=== PATIENT | female | born 1990 | race Caucasian/White ===

== ENCOUNTER 2016-09-07 22:36 | Emergency (ER) | payer OTHER ==
[~2016-09-07 22:36] MED LIST: ACET65TA OR; COLA100C2 OR; IBUP800T OR; prenatal vitamins PO
[2016-09-08] MEDS ORDERED: PERCOCET 5MG/325MG TAB As Ordered ONE (01:15)
--- NOTE | 2016-09-08 01:28 | EDDOCDS ---
Nurse's Notes [facility] Name: Gosia Bishop Age: 26 yrs Sex: Female : 1990 Arrival Date: 09/07/2016 Time: 22:36 Bed TR7 Private MD: Patrick Leahy Diagnosis: Abdominal and pelvic pain-chronic Presentation: 09/07 22:53 Presenting complaint: Patient states: that she has "pelvic congestion syndrome" and is ms18 in a lot of pain at this time. Pt reports nausea at this time. Risk factors: the patient reports pt states that she had some spotting 2 nights ago. Adult Sepsis Screening: The patient does not have new or worsening altered mentation. Patient's respiratory rate is less than 22. Systolic blood pressure is greater than 100. Patient has a qSOFA score of 0- Negative Sepsis Screen. Suicide/Homicide risk assessment- the patient denies having any suicidal and/or homicidal ideations and does not present with any other emotional, behavioral or mental health complaints. Status: Patient is not a lead customer service representative or dependent. Transition of care: patient was not received from another setting of care. 22:53 Acuity: ROSETTE Level 3 ms18 22:53 Method Of Arrival: Walkin/Carried/Asstd ms18 Triage Assessment: 22:56 General: Appears in no apparent distress, uncomfortable, Behavior is anxious, crying. ms18 Pain: Location: pelvis. HIV screening NA for this visit Offered previously. Neurological: Level of Consciousness is awake, alert, obeys commands, Oriented to person, place, time. Respiratory: Airway is patent Respiratory effort is even, unlabored. GI: Abdomen is non- distended Reports nausea. Derm: Skin is pink, warm & dry. 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 Depo-Provera 150 mg/mL IM syrg every 3 mo - PMHx: Migraines; pelvic congestive syndrome; - PSHx: none; - Social history: Smoking status: Patient states was never smoker of tobacco. No barriers to communication noted, The patient speaks fluent Gambian. - Family history: Not pertinent. - : The pt / caregiver states he / she is not on anticoagulants. Home medication list is obtained from the patient. - Exposure Risk Screening:: None identified. Screenin/03 00:40 Screening information is obtained from the patient. Fall risk: No risks identified. lf1 Assistance ADL's: requires no assistance with activities of daily living. Nutritional screening: No deficits noted. 01:27 Abuse/DV Screen: The patient / caregiver reports he/she is: not in a situation that cz causes fear, pain or injury. home support is adequate. Assessment: 00:40 Adult Sepsis Screening: The patient does not have new or worsening altered mentation. lf1 Patient's respiratory rate is less than 22. Systolic blood pressure is greater than 100. Patient has a qSOFA score of 0- Negative Sepsis Screen. General: Appears in no apparent distress, Behavior is restless. Pain: Location: pelvis Pain currently is 10 out of 10 on a pain scale. Quality of pain is described as "like contractions only worse" Pain began 2-3 days ago Has taken no OTC meds because nothing works. Neurological: Level of Consciousness is awake, alert, Oriented to person, place, time. EENT: No deficits noted. Cardiovascular: Chest pain is denied. Respiratory: Respiratory effort is even, unlabored, Breath sounds are clear bilaterally. GI: Abdomen is flat, Bowel sounds present X 4 quads. Abd is soft and non tender Reports Pelvic/suprapubic pain that is recurrent - states she has not sought follow up care with a PCP because "it's complicated and they just keep screwing with me". : Denies burning with urination. Derm: Skin is normal. Vital Signs: 09/07 22:37 BP 128 / 92; Pulse 113; Resp 18 S; Temp 98.9(O); Pulse Ox 99% on R/A; Weight 49.9 kg gr2 (R); Height 5 ft. 5 in. (165.10 cm) (R); Pain 10/10; 09/08 01:17 BP 136 / 82 RA Sitting (auto/reg); Pulse 93 MON; Resp 20 S; Temp 98.6(O); Pulse Ox 98% cln on R/A; Pain 0/10; 09/07 22:37 Body Mass Index 18.30 (49.90 kg, 165.10 cm) gr2 Vitals: 09/07 22:37 Log In Time: September 07, 2016 at 22:37. gr2 ED Course: 22:37 Patient visited by Skip Gallagher. gr2 22:37 Patrick Leahy is Private Physician. gr2 22:37 Patient moved to Waiting gr2 22:39 Patient visited by Skip Gallagher. gr2 22:39 Patient moved to Pre RCE gr2 22:55 Triage Initiated ms18 23:39 Patient moved to Triage 1 cz 09/08 00:19 Patient moved to I4 / M4 jmb 00:39 Noe Castro PA is PHCP. mo1 00:39 Osiel Reyes MD is Attending Physician. mo1 00:40 Patient visited by Aylin Shaikh,ОЛЬГА. lf1 00:40 The patient / caregiver is instructed regarding the plan of care and ED course. lf1 Accompanied by Significant Other, Patient has correct armband on for positive identification. Bed in low position. 00:43 Patient visited by Aylin Shaikh,ОЛЬГА. lf1 00:56 Patient visited by Noe Castro PA. mo1 01:13 Patrick Leahy is Referral Physician. mo1 01:18 Patient visited by Kori Perkins PCA. cln 01:20 Patient moved to TR7 cz 01:27 No IV's were initiated during this patient's visit. No procedures done that require cz assistance. Administered Medications: 01:24 Drug: oxyCODONE-acetaminophen 1 tabs [oxycodone-acetaminophen 5 mg-325 mg tablet (1 cz tabs)] Route: PO; Order Results: There are currently no results for this order. Outcome: 01:13 Discharge ordered by Provider. mo1 01:26 Discharge Assessment: Patient awake, alert and oriented x 3. No cognitive and/or cz functional deficits noted. Patient verbalized understanding of disposition instructions. patient administered narcotics - yes. Pt provided with safe discharge. The following High Risk Discharge criteria are identified: None. Discharged to home ambulatory, with significant other. Condition: stable. Discharge instructions given to patient, Instructed on discharge instructions, follow up and referral plans. Demonstrated understanding of instructions, Pt was receptive of discharge instructions/ teaching. No special radiology studies were completed. Property :Personal belongings accompany Pt. 01:27 Patient left the ED. cz Signatures: Rosendo Marino RN RN cz Aylin Shaikh,RN RN lf1 Skip Gallagher gr2 Noe Castro PA PA mo1 Denzel Moran,RN RN deionb Evelyne FelizRN RN ms18 Kori Perkins, MARYANNE TOWER OPERATOR cln TIMD
--- NOTE | 2016-09-08 01:28 | EDDOCDS ---
Physician Documentation [facility] Name: Gosia Bishop Age: 26 yrs Sex: Female : 1990 Arrival Date: 09/07/2016 Time: 22:36 Bed TR7 Private MD: Patrick Leahy Disposition: 09/08/16 01:13 Discharged to Home/Self Care. Impression: Abdominal and pelvic pain - chronic. - Condition is Stable. - Discharge Instructions: Pelvic Pain, Female. - Medication Reconciliation, Local Pharmacy Hours form. - Follow up: Patrick Leahy; When: Call to arrange an appointment; Reason: Recheck today's complaints, Continuance of care. - Problem is new. - Symptoms are unchanged. Historical: - Allergies: no known allergies; - Home Meds: 1. Depo-Provera 150 mg/mL IM syrg every 3 mo - PMHx: Migraines; pelvic congestive syndrome; - PSHx: none; - Social history: Smoking status: Patient states was never smoker of tobacco. No barriers to communication noted, The patient speaks fluent Vietnamese. - Family history: Not pertinent. - : The pt / caregiver states he / she is not on anticoagulants. Home medication list is obtained from the patient. - Exposure Risk Screening:: None identified. 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 5 in. (165.10 cm) (R); Pain 10/10; 09/08 01:17 BP 136 / 82 RA Sitting (auto/reg); Pulse 93 MON; Resp 20 S; Temp 98.6(O); Pulse Ox 98% cln on R/A; Pain 0/10; 09/07 22:37 Body Mass Index 18.30 (49.90 kg, 165.10 cm) gr2 MDM: 01:11 oxyCODONE-acetaminophen 5 mg-325 mg 1 tabs PO once ordered. mo1 Administered Medications: 01:24 Drug: oxyCODONE-acetaminophen 1 tabs [oxycodone-acetaminophen 5 mg-325 mg tablet (1 cz tabs)] Route: PO; Signatures: Rosendo Marino, RN RN cz Aylin ShaikhRN RN lf1 Noe Castro PA PA mo1 Evelyne FelizRN RN ms18 MTDD
--- NOTE | 2016-09-10 02:29 | EDDOCDS ---
Nurse's Notes [facility] Name: Gosia Bishop Age: 26 yrs Sex: Female : 1990 Arrival Date: 09/07/2016 Time: 22:36 Bed TR7 Private MD: Patrick Leahy Diagnosis: Abdominal and pelvic pain-chronic Presentation: 09/07 22:53 Presenting complaint: Patient states: that she has "pelvic congestion syndrome" and is ms18 in a lot of pain at this time. Pt reports nausea at this time. Risk factors: the patient reports pt states that she had some spotting 2 nights ago. Adult Sepsis Screening: The patient does not have new or worsening altered mentation. Patient's respiratory rate is less than 22. Systolic blood pressure is greater than 100. Patient has a qSOFA score of 0- Negative Sepsis Screen. Suicide/Homicide risk assessment- the patient denies having any suicidal and/or homicidal ideations and does not present with any other emotional, behavioral or mental health complaints. Status: Patient is not a health services rn or dependent. Transition of care: patient was not received from another setting of care. 22:53 Acuity: ROSETTE Level 3 ms18 22:53 Method Of Arrival: Walkin/Carried/Asstd ms18 Triage Assessment: 22:56 General: Appears in no apparent distress, uncomfortable, Behavior is anxious, crying. ms18 Pain: Location: pelvis. HIV screening NA for this visit Offered previously. Neurological: Level of Consciousness is awake, alert, obeys commands, Oriented to person, place, time. Respiratory: Airway is patent Respiratory effort is even, unlabored. GI: Abdomen is non- distended Reports nausea. Derm: Skin is pink, warm & dry. 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 Depo-Provera 150 mg/mL IM syrg every 3 mo - PMHx: Migraines; pelvic congestive syndrome; - PSHx: none; - Social history: Smoking status: Patient states was never smoker of tobacco. No barriers to communication noted, The patient speaks fluent Cameroonian. - Family history: Not pertinent. - : The pt / caregiver states he / she is not on anticoagulants. Home medication list is obtained from the patient. - Exposure Risk Screening:: None identified. Screenin/03 00:40 Screening information is obtained from the patient. Fall risk: No risks identified. lf1 Assistance ADL's: requires no assistance with activities of daily living. Nutritional screening: No deficits noted. 01:27 Abuse/DV Screen: The patient / caregiver reports he/she is: not in a situation that cz causes fear, pain or injury. home support is adequate. Assessment: 00:40 Adult Sepsis Screening: The patient does not have new or worsening altered mentation. lf1 Patient's respiratory rate is less than 22. Systolic blood pressure is greater than 100. Patient has a qSOFA score of 0- Negative Sepsis Screen. General: Appears in no apparent distress, Behavior is restless. Pain: Location: pelvis Pain currently is 10 out of 10 on a pain scale. Quality of pain is described as "like contractions only worse" Pain began 2-3 days ago Has taken no OTC meds because nothing works. Neurological: Level of Consciousness is awake, alert, Oriented to person, place, time. EENT: No deficits noted. Cardiovascular: Chest pain is denied. Respiratory: Respiratory effort is even, unlabored, Breath sounds are clear bilaterally. GI: Abdomen is flat, Bowel sounds present X 4 quads. Abd is soft and non tender Reports Pelvic/suprapubic pain that is recurrent - states she has not sought follow up care with a PCP because "it's complicated and they just keep screwing with me". : Denies burning with urination. Derm: Skin is normal. Vital Signs: 09/07 22:37 BP 128 / 92; Pulse 113; Resp 18 S; Temp 98.9(O); Pulse Ox 99% on R/A; Weight 49.9 kg gr2 (R); Height 5 ft. 5 in. (165.10 cm) (R); Pain 10/10; 09/08 01:17 BP 136 / 82 RA Sitting (auto/reg); Pulse 93 MON; Resp 20 S; Temp 98.6(O); Pulse Ox 98% cln on R/A; Pain 0/10; 09/07 22:37 Body Mass Index 18.30 (49.90 kg, 165.10 cm) gr2 Vitals: 09/07 22:37 Log In Time: September 07, 2016 at 22:37. gr2 ED Course: 22:37 Patient visited by Skip Gallagher. gr2 22:37 Patrick Leahy is Private Physician. gr2 22:37 Patient moved to Waiting gr2 22:39 Patient visited by Skip Gallagher. gr2 22:39 Patient moved to Pre RCE gr2 22:55 Triage Initiated ms18 23:39 Patient moved to Triage 1 cz 09/08 00:19 Patient moved to I4 / M4 jmb 00:39 Noe Castro PA is PHCP. mo1 00:39 Osiel Reyes MD is Attending Physician. mo1 00:40 Patient visited by Aylin Shaikh RN. lf1 00:40 The patient / caregiver is instructed regarding the plan of care and ED course. lf1 Accompanied by Significant Other, Patient has correct armband on for positive identification. Bed in low position. 00:43 Patient visited by Aylin Shaikh RN. lf1 00:56 Patient visited by Noe Castro PA. mo1 01:13 Patrick Leahy is Referral Physician. mo1 01:18 Patient visited by Kori Perkins PCA. cln 01:20 Patient moved to TR7 cz 01:27 No IV's were initiated during this patient's visit. No procedures done that require cz assistance. 01:28 [facility] [place] Agreement was scanned into [employer] and attached to record. hs2 04:35 T-Sheet-- Draft Copy was scanned into [employer] and attached to record. hs2 Administered Medications: 01:24 Drug: oxyCODONE-acetaminophen 1 tabs [oxycodone-acetaminophen 5 mg-325 mg tablet (1 cz tabs)] Route: PO; Order Results: There are currently no results for this order. Outcome: 01:13 Discharge ordered by Provider. mo1 01:26 Discharge Assessment: Patient awake, alert and oriented x 3. No cognitive and/or cz functional deficits noted. Patient verbalized understanding of disposition instructions. patient administered narcotics - yes. Pt provided with safe discharge. The following High Risk Discharge criteria are identified: None. Discharged to home ambulatory, with significant other. Condition: stable. Discharge instructions given to patient, Instructed on discharge instructions, follow up and referral plans. Demonstrated understanding of instructions, Pt was receptive of discharge instructions/ teaching. No special radiology studies were completed. Property :Personal belongings accompany Pt. 01:27 Patient left the ED. cz Signatures: Rosendo Marino, RN RN cz Aylin ShaikhRN RN lf1 Skip Gallagher gr2 Noe Castro PA PA mo1 Denzel Moran,RN RN Evelyne Javed RN RN ms18 Nery Quiñones, Reg Reg hs2 Kori Perkins, MARYANNE SENIOR ACCOUNTING ANALYST cln Chart Complete MTDD
--- NOTE | 2016-09-10 02:29 | EDDOCDS ---
Physician Documentation [facility] Name: Gosia Bishop Age: 26 yrs Sex: Female : 1990 Arrival Date: 09/07/2016 Time: 22:36 Bed TR7 Private MD: Patrick Leahy Disposition: 09/08/16 01:13 Discharged to Home/Self Care. Impression: Abdominal and pelvic pain - chronic. - Condition is Stable. - Discharge Instructions: Pelvic Pain, Female. - Medication Reconciliation, Local Pharmacy Hours form. - Follow up: Patrick Leahy; When: Call to arrange an appointment; Reason: Recheck today's complaints, Continuance of care. - Problem is new. - Symptoms are unchanged. Historical: - Allergies: no known allergies; - Home Meds: 1. Depo-Provera 150 mg/mL IM syrg every 3 mo - PMHx: Migraines; pelvic congestive syndrome; - PSHx: none; - Social history: Smoking status: Patient states was never smoker of tobacco. No barriers to communication noted, The patient speaks fluent Croatian. - Family history: Not pertinent. - : The pt / caregiver states he / she is not on anticoagulants. Home medication list is obtained from the patient. - Exposure Risk Screening:: None identified. 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 5 in. (165.10 cm) (R); Pain 10/10; 09/08 01:17 BP 136 / 82 RA Sitting (auto/reg); Pulse 93 MON; Resp 20 S; Temp 98.6(O); Pulse Ox 98% cln on R/A; Pain 0/10; 09/07 22:37 Body Mass Index 18.30 (49.90 kg, 165.10 cm) gr2 MDM: 01:11 oxyCODONE-acetaminophen 5 mg-325 mg 1 tabs PO once ordered. mo1 01:28 Financial registration complete. hs2 01:28 [facility] Payment Agreement was scanned into [employer] and attached to record. hs2 04:35 T-Sheet-- Draft Copy was scanned into [employer] and attached to record. hs2 Administered Medications: 01:24 Drug: oxyCODONE-acetaminophen 1 tabs [oxycodone-acetaminophen 5 mg-325 mg tablet (1 cz tabs)] Route: PO; Signatures: Rosendo Marino RN RN cz Aylin Shaikh RN RN lf1 Noe Castro PA PA mo1 Evelyne Feliz RN RN ms18 Nery Quiñones, Reg Reg hs2 The chart was reviewed and I authenticate all verbal orders and agree with the evaluation and treatment provided.Attachments: 01:28 [facility] [place] Payment Agreement hs2 04:35 T-Sheet-- Draft Copy hs2 Chart Complete MTDD
--- NOTE | 2016-09-10 02:29 | EDDOCDS ---
Physician Documentation [facility] Name: Gosia Bishop Age: 26 yrs Sex: Female : 1990 Arrival Date: 09/07/2016 Time: 22:36 Bed TR7 Private MD: Patrick Leahy Disposition: 09/08/16 01:13 Discharged to Home/Self Care. Impression: Abdominal and pelvic pain - chronic. - Condition is Stable. - Discharge Instructions: Pelvic Pain, Female. - Medication Reconciliation, Local Pharmacy Hours form. - Follow up: Patrick Leahy; When: Call to arrange an appointment; Reason: Recheck today's complaints, Continuance of care. - Problem is new. - Symptoms are unchanged. Historical: - Allergies: no known allergies; - Home Meds: 1. Depo-Provera 150 mg/mL IM syrg every 3 mo - PMHx: Migraines; pelvic congestive syndrome; - PSHx: none; - Social history: Smoking status: Patient states was never smoker of tobacco. No barriers to communication noted, The patient speaks fluent Kiswahili. - Family history: Not pertinent. - : The pt / caregiver states he / she is not on anticoagulants. Home medication list is obtained from the patient. - Exposure Risk Screening:: None identified. 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 5 in. (165.10 cm) (R); Pain 10/10; 09/08 01:17 BP 136 / 82 RA Sitting (auto/reg); Pulse 93 MON; Resp 20 S; Temp 98.6(O); Pulse Ox 98% cln on R/A; Pain 0/10; 09/07 22:37 Body Mass Index 18.30 (49.90 kg, 165.10 cm) gr2 MDM: 01:11 oxyCODONE-acetaminophen 5 mg-325 mg 1 tabs PO once ordered. mo1 01:28 Financial registration complete. hs2 01:28 [facility] Payment Agreement was scanned into [employer] and attached to record. hs2 04:35 T-Sheet-- Draft Copy was scanned into [employer] and attached to record. hs2 Administered Medications: 01:24 Drug: oxyCODONE-acetaminophen 1 tabs [oxycodone-acetaminophen 5 mg-325 mg tablet (1 cz tabs)] Route: PO; Signatures: Rosendo Marino RN RN cz Aylin Shaikh RN RN lf1 Noe Castro PA PA mo1 Evelyne Feliz RN RN ms18 Nery Quiñones, Reg Reg hs2 The chart was reviewed and I authenticate all verbal orders and agree with the evaluation and treatment provided.Attachments: 01:28 [facility] Agreement hs2 04:35 T-Sheet-- Draft Copy hs2 Chart Complete MTDD
== END 2016-09-08 01:27 | disposition home or self-care (01) ==
LOC: M ED 22:36
DX: G89.29 Other chronic pain (principal); R10.2 Pelvic and perineal pain; N94.89 Other specified conditions associated with female genital organs and menstrual cycle; G43.909 Migraine, unspecified, not intractable, without status migrainosus; Z79.3 Long term (current) use of hormonal contraceptives

== ENCOUNTER 2016-09-25 22:28 | Emergency (ER) | payer OTHER ==
[2016-09-26] MEDS ORDERED: OXYCODONE/APAP 5MG/325MG(BULK) 1 TAB TAB As Ordered ONE (01:43)
--- NOTE | 2016-09-26 01:53 | EDDOCDS ---
Nurse's Notes [facility] Name: Gosia Bishop Age: 26 yrs Sex: Female : 1990 Arrival Date: 09/25/2016 Time: 22:28 Bed I1 / M1 Private MD: Patrick Leahy Diagnosis: Abdominal and pelvic pain-history of pelvic congestion Presentation: 09/25 22:31 Presenting complaint: Patient states: pelvic pain worse since last night. diagnosed rs3 with venous congestion syndrome. following up with INTERNATIONAL ACCOUNTANT. Adult Sepsis Screening: The patient does not have new or worsening altered mentation. Patient's respiratory rate is less than 22. Systolic blood pressure is greater than 100. Patient has a qSOFA score of 0- Negative Sepsis Screen. Suicide/Homicide risk assessment- the patient denies having any suicidal and/or homicidal ideations and does not present with any other emotional, behavioral or mental health complaints. 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 Transition of care: patient was not received from another setting of care. 22:31 Acuity: ROSETTE Level 4 rs3 22:31 Method Of Arrival: Walkin/Carried/Asstd rs3 Triage Assessment: 22:33 General: Appears in no apparent distress. Pain: Location: pelvis. HIV screening NA for rs3 this visit Offered previously. INTERNATIONAL ACCOUNTANT: 22:33 LMP N/A - control method rs3 Historical: - Allergies: no known allergies; - Home Meds: 1. Depo-Provera 150 mg/mL IM syrg every 3 mo - PMHx: Migraines; pelvic congestive syndrome; - PSHx: none; - Social history: Smoking status: Patient states was never smoker of tobacco. No barriers to communication noted, The patient speaks fluent Chadian. - Family history: Not pertinent. - : The pt / caregiver states he / she is not on anticoagulants. Home medication list is obtained from the patient. - Exposure Risk Screening:: None identified. Screenin/21 01:50 Screening information is obtained from the patient. Fall risk: No risks identified. jmb Assistance ADL's: requires no assistance with activities of daily living. Abuse/DV Screen: The patient / caregiver reports he/she is: not in a situation that causes fear, pain or injury. Nutritional screening: No deficits noted. Advance Directives: Currently, there is no health care proxy. There is no active DNR order. There is no living will. There is no Power of Radio Announcer. home support is adequate. Assessment: 01:50 General: Patient instructed on discharge instructions. Patient asked if there were any jmb questions regarding discharge, patient stated no. Patient signed discharge paperwork. Patient discharged in stable condition. . Vital Signs: 09/25 22:29 BP 134 / 74; Pulse 118; Resp 18 S; Temp 98.1(O); Pulse Ox 99% on R/A; Weight 49.9 kg dd6 (R); Height 5 ft. 5 in. (165.10 cm) (R); 09/26 01:50 BP 130 / 78; Pulse 74; Resp 18; Temp 97.6(O); Pulse Ox 98% on R/A; Pain 0/10; jmb 09/25 22:29 Body Mass Index 18.30 (49.90 kg, 165.10 cm) dd6 Vitals: 09/25 22:29 Log In Time: September 25, 2016 at 22:27. dd6 ED Course: 22:29 Patient visited by Aab Alvarez PCA. dd6 22:29 Patrick Leahy is Private Physician. dd6 22:29 Patient moved to Waiting dd6 22:30 Patient moved to Pre RCE dd6 22:33 Triage Initiated rs3 09/26 01:30 Patient moved to I1 / M1 dt4 01:33 [facility] dt4 01:33 Boubacar Michaels DO is Attending Physician. dt4 01:33 Patient visited by Aiyana Astudillo PA-C. dt4 01:45 Murali Wen MD is Referral Physician. dt4 01:50 The patient / caregiver is instructed regarding the plan of care and ED course. jmb 01:50 No IV's were initiated during this patient's visit. No procedures done that require jmb assistance. Administered Medications: 01:49 Drug: oxyCODONE-acetaminophen 4 pack 1 packets [oxycodone-acetaminophen 5 mg-325 mg jmb tablet (1 tabs)] {Co-Signature: cp1 (Morena Roy LPN).} Route: PO; Order Results: There are currently no results for this order. Outcome: 01:45 Discharge ordered by Provider. dt4 01:50 Discharge Assessment: Patient awake, alert and oriented x 3. No cognitive and/or jmb functional deficits noted. Patient verbalized understanding of disposition instructions. Patient awake and alert. obeys commands, Oriented to person, place and time. Patient verbalized understanding of disposition instructions. Patient has no functional deficits. patient administered narcotics - no. The following High Risk Discharge criteria are identified: None. Discharged to home ambulatory. Condition: stable. Discharge instructions given to patient, Instructed on discharge instructions, follow up and referral plans. medication usage, Demonstrated understanding of instructions, medications, Pt was receptive of discharge instructions/ teaching. Prescriptions given X 1. No special radiology studies were completed. Property sent home with patient. 01:52 Patient left the ED. sammy Signatures: Aba Alvarez, CLAM BED LABORER CLAM BED LABORER dd6 Lesli Dumont,RN RN rs3 Denzel Moran RN RN Aiyana Leblanc, PAMarcellus PAMarcellus dt4 Morena Roy LPN cp1 NORAH
--- NOTE | 2016-09-26 01:53 | EDDOCDS ---
Physician Documentation [facility] Name: Gosia Bishop Age: 26 yrs Sex: Female : 1990 Arrival Date: 09/25/2016 Time: 22:28 Bed I1 / M1 Private MD: Patrick Leahy Disposition: 09/26/16 01:45 Discharged to Home/Self Care. Impression: Abdominal and pelvic pain - history of pelvic congestion. - Condition is Stable. - Discharge Instructions: Pelvic Pain, Female. - Prescriptions for Percocet 5- 325 mg Oral Tablet - take 1 tablet by ORAL route every 6 hours As needed MDD: 4 tabs; 20 tablet. - Medication Reconciliation, Local Pharmacy Hours form. - Follow up: Emergency Department; When: As needed; Reason: Worsening of conditions. Follow up: Murali Wen MD; When: Call to arrange an appointment; Reason: Wound/Symptom Recheck, Recheck today's complaints, Continuance of care. - Problem is new. - Symptoms are unchanged. Historical: - Allergies: no known allergies; - Home Meds: 1. Depo-Provera 150 mg/mL IM syrg every 3 mo - PMHx: Migraines; pelvic congestive syndrome; - PSHx: none; - Social history: Smoking status: Patient states was never smoker of tobacco. No barriers to communication noted, The patient speaks fluent [place] Islander. - Family history: Not pertinent. - : The pt / caregiver states he / she is not on anticoagulants. Home medication list is obtained from the patient. - Exposure Risk Screening:: None identified. 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 5 in. (165.10 cm) (R); 09/26 01:50 BP 130 / 78; Pulse 74; Resp 18; Temp 97.6(O); Pulse Ox 98% on R/A; Pain 0/10; jmb 09/25 22:29 Body Mass Index 18.30 (49.90 kg, 165.10 cm) dd6 MDM: 01:35 Financial registration complete. [facility] 01:41 oxyCODONE-acetaminophen 4 pack 5 mg-325 mg 1 packets PO once; Dispense with pt, take as dt4 per instruction on package ordered. Administered Medications: 01:49 Drug: oxyCODONE-acetaminophen 4 pack 1 packets [oxycodone-acetaminophen 5 mg-325 mg jmb tablet (1 tabs)] {Co-Signature: cp1 (Morena Roy LPN).} Route: PO; Signatures: Lesli Dumont,RN RN rs3 Denzel Moran RN RN deionb Aiyana Astudillo, DMITRI RIZVI dt4 Beth Thompson [facility] Morena Roy LPN cp1 MTDD
--- NOTE | 2016-09-28 02:52 | EDDOCDS ---
Nurse's Notes [facility] Name: Gosia Bishop Age: 26 yrs Sex: Female : 1990 Arrival Date: 09/25/2016 Time: 22:28 Bed I1 / M1 Private MD: Patrick Leahy Diagnosis: Abdominal and pelvic pain-history of pelvic congestion Presentation: 09/25 22:31 Presenting complaint: Patient states: pelvic pain worse since last night. diagnosed rs3 with venous congestion syndrome. following up with MANAGEMENT TECH. Adult Sepsis Screening: The patient does not have new or worsening altered mentation. Patient's respiratory rate is less than 22. Systolic blood pressure is greater than 100. Patient has a qSOFA score of 0- Negative Sepsis Screen. Suicide/Homicide risk assessment- the patient denies having any suicidal and/or homicidal ideations and does not present with any other emotional, behavioral or mental health complaints. Status: Patient is not a donor services team leader or dependent. Transition of care: patient was not received from another setting of care. 22:31 Acuity: ROSETTE Level 4 rs3 22:31 Method Of Arrival: Walkin/Carried/Asstd rs3 Triage Assessment: 22:33 General: Appears in no apparent distress. Pain: Location: pelvis. HIV screening NA for rs3 this visit Offered previously. 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 Depo-Provera 150 mg/mL IM syrg every 3 mo - PMHx: Migraines; pelvic congestive syndrome; - PSHx: none; - Social history: Smoking status: Patient states was never smoker of tobacco. No barriers to communication noted, The patient speaks fluent Venezuelan. - Family history: Not pertinent. - : The pt / caregiver states he / she is not on anticoagulants. Home medication list is obtained from the patient. - Exposure Risk Screening:: None identified. Screenin/21 01:50 Screening information is obtained from the patient. Fall risk: No risks identified. jmb Assistance ADL's: requires no assistance with activities of daily living. Abuse/DV Screen: The patient / caregiver reports he/she is: not in a situation that causes fear, pain or injury. Nutritional screening: No deficits noted. Advance Directives: Currently, there is no health care proxy. There is no active DNR order. There is no living will. There is no Power of Drone Pilot. home support is adequate. Assessment: 01:50 General: Patient instructed on discharge instructions. Patient asked if there were any jmb questions regarding discharge, patient stated no. Patient signed discharge paperwork. Patient discharged in stable condition. . Vital Signs: 09/25 22:29 BP 134 / 74; Pulse 118; Resp 18 S; Temp 98.1(O); Pulse Ox 99% on R/A; Weight 49.9 kg dd6 (R); Height 5 ft. 5 in. (165.10 cm) (R); 09/26 01:50 BP 130 / 78; Pulse 74; Resp 18; Temp 97.6(O); Pulse Ox 98% on R/A; Pain 0/10; jmb 09/25 22:29 Body Mass Index 18.30 (49.90 kg, 165.10 cm) dd6 Vitals: 09/25 22:29 Log In Time: September 25, 2016 at 22:27. dd6 ED Course: 22:29 Patient visited by Aba Alvarez PCA. dd6 22:29 Patrick Leahy is Private Physician. dd6 22:29 Patient moved to Waiting dd6 22:30 Patient moved to Pre RCE dd6 22:33 Triage Initiated rs3 09/26 01:30 Patient moved to I1 / M1 dt4 01:33 [facility]studillo [facility]. dt4 01:33 Boubacar Michaels DO is Attending Physician. dt4 01:33 Patient visited by Aiyana Astudillo PA-C. dt4 01:45 Murali Wen MD is Referral Physician. dt4 01:50 The patient / caregiver is instructed regarding the plan of care and ED course. jmb 01:50 No IV's were initiated during this patient's visit. No procedures done that require jmb assistance. 03:09 [facility] Payment Agreement was scanned into [employer] and attached to record. [facility] 12:05 T-Sheet-- Draft Copy was scanned into [employer] and attached to record. gb 12:06 Other: DRUG UTILIZATION REPORT was scanned into [employer] and attached to record. gb Administered Medications: 01:49 Drug: oxyCODONE-acetaminophen 4 pack 1 packets [oxycodone-acetaminophen 5 mg-325 mg jmb tablet (1 tabs)] {Co-Signature: cp1 (Morena Roy LPN).} Route: PO; Order Results: There are currently no results for this order. Outcome: 01:45 Discharge ordered by Provider. dt4 01:50 Discharge Assessment: Patient awake, alert and oriented x 3. No cognitive and/or jmb functional deficits noted. Patient verbalized understanding of disposition instructions. Patient awake and alert. obeys commands, Oriented to person, place and time. Patient verbalized understanding of disposition instructions. Patient has no functional deficits. patient administered narcotics - no. The following High Risk Discharge criteria are identified: None. Discharged to home ambulatory. Condition: stable. Discharge instructions given to patient, Instructed on discharge instructions, follow up and referral plans. medication usage, Demonstrated understanding of instructions, medications, Pt was receptive of discharge instructions/ teaching. Prescriptions given X 1. No special radiology studies were completed. Property sent home with patient. 01:52 Patient left the ED. jmb Signatures: Jeannette Jauregui, Reg Reg gb Aba Alvarez, HEALTH PROMOTER HEALTH PROMOTER dd6 Lesli DumontRN RN rs3 Denzel MoranRN RN Aiyana Leblanc PA-C PA-C dt4 Beth Thompson LPN cp1 Chart Complete MTDD
--- NOTE | 2016-09-28 02:52 | EDDOCDS ---
Physician Documentation [facility] Name: Gosia Bishop Age: 26 yrs Sex: Female : 1990 Arrival Date: 09/25/2016 Time: 22:28 Bed I1 / M1 Private MD: Patrick Leahy Disposition: 09/26/16 01:45 Discharged to Home/Self Care. Impression: Abdominal and pelvic pain - history of pelvic congestion. - Condition is Stable. - Discharge Instructions: Pelvic Pain, Female. - Prescriptions for Percocet 5- 325 mg Oral Tablet - take 1 tablet by ORAL route every 6 hours As needed MDD: 4 tabs; 20 tablet. - Medication Reconciliation, Local Pharmacy Hours form. - Follow up: Emergency Department; When: As needed; Reason: Worsening of conditions. Follow up: Murali Wen MD; When: Call to arrange an appointment; Reason: Wound/Symptom Recheck, Recheck today's complaints, Continuance of care. - Problem is new. - Symptoms are unchanged. Historical: - Allergies: no known allergies; - Home Meds: 1. Depo-Provera 150 mg/mL IM syrg every 3 mo - PMHx: Migraines; pelvic congestive syndrome; - PSHx: none; - Social history: Smoking status: Patient states was never smoker of tobacco. No barriers to communication noted, The patient speaks fluent Pakistani. - Family history: Not pertinent. - : The pt / caregiver states he / she is not on anticoagulants. Home medication list is obtained from the patient. - Exposure Risk Screening:: None identified. 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 5 in. (165.10 cm) (R); 09/26 01:50 BP 130 / 78; Pulse 74; Resp 18; Temp 97.6(O); Pulse Ox 98% on R/A; Pain 0/10; jmb 09/25 22:29 Body Mass Index 18.30 (49.90 kg, 165.10 cm) dd6 MDM: 01:35 Financial registration complete. [facility] 01:41 oxyCODONE-acetaminophen 4 pack 5 mg-325 mg 1 packets PO once; Dispense with pt, take as dt4 per instruction on package ordered. 03:09 [facility] Payment Agreement was scanned into [employer] and attached to record. [facility] 12:05 T-Sheet-- Draft Copy was scanned into [employer] and attached to record. 12:06 Other: DRUG UTILIZATION REPORT was scanned into [employer] and attached to record. Administered Medications: 01:49 Drug: oxyCODONE-acetaminophen 4 pack 1 packets [oxycodone-acetaminophen 5 mg-325 mg jmb tablet (1 tabs)] {Co-Signature: cp1 (Morena Roy LPN).} Route: PO; Signatures: Jeannette Jauregui, Reg Reg gb Lesli Dumont,RN RN rs3 Denzel Moran RN RN Aiyana Leblanc PA-C PAMarcellus dt4 Beth Thompson [facility] Morena Roy LPN cp1 The chart was reviewed and I authenticate all verbal orders and agree with the evaluation and treatment provided.Attachments: 03:09 [facility] Payment Agreement [facility] 12:05 T-Sheet-- Draft Copy Chart Complete MTDD
--- NOTE | 2016-09-28 02:52 | EDDOCDS ---
Physician Documentation [facility] Name: Gosia Bishop Age: 26 yrs Sex: Female : 1990 Arrival Date: 09/25/2016 Time: 22:28 Bed I1 / M1 Private MD: Patrick Leahy Disposition: 09/26/16 01:45 Discharged to Home/Self Care. Impression: Abdominal and pelvic pain - history of pelvic congestion. - Condition is Stable. - Discharge Instructions: Pelvic Pain, Female. - Prescriptions for Percocet 5- 325 mg Oral Tablet - take 1 tablet by ORAL route every 6 hours As needed MDD: 4 tabs; 20 tablet. - Medication Reconciliation, Local Pharmacy Hours form. - Follow up: Emergency Department; When: As needed; Reason: Worsening of conditions. Follow up: Murali Wen MD; When: Call to arrange an appointment; Reason: Wound/Symptom Recheck, Recheck today's complaints, Continuance of care. - Problem is new. - Symptoms are unchanged. Historical: - Allergies: no known allergies; - Home Meds: 1. Depo-Provera 150 mg/mL IM syrg every 3 mo - PMHx: Migraines; pelvic congestive syndrome; - PSHx: none; - Social history: Smoking status: Patient states was never smoker of tobacco. No barriers to communication noted, The patient speaks fluent American. - Family history: Not pertinent. - : The pt / caregiver states he / she is not on anticoagulants. Home medication list is obtained from the patient. - Exposure Risk Screening:: None identified. 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 5 in. (165.10 cm) (R); 09/26 01:50 BP 130 / 78; Pulse 74; Resp 18; Temp 97.6(O); Pulse Ox 98% on R/A; Pain 0/10; jmb 09/25 22:29 Body Mass Index 18.30 (49.90 kg, 165.10 cm) dd6 MDM: 01:35 Financial registration complete. [facility] 01:41 oxyCODONE-acetaminophen 4 pack 5 mg-325 mg 1 packets PO once; Dispense with pt, take as dt4 per instruction on package ordered. 03:09 [facility] Payment Agreement was scanned into [employer] and attached to record. [facility] 12:05 T-Sheet-- Draft Copy was scanned into [employer] and attached to record. 12:06 Other: DRUG UTILIZATION REPORT was scanned into [employer] and attached to record. Administered Medications: 01:49 Drug: oxyCODONE-acetaminophen 4 pack 1 packets [oxycodone-acetaminophen 5 mg-325 mg jmb tablet (1 tabs)] {Co-Signature: cp1 (Morena Roy LPN).} Route: PO; Signatures: Jeannette Jauregui, Reg Reg gb Lesli Dumont,RN RN rs3 Denzel Moran RN RN Aiyana Leblanc PA-C PAMarcellus dt4 Beth Thompson [facility] Morena Roy LPN cp1 The chart was reviewed and I authenticate all verbal orders and agree with the evaluation and treatment provided.Attachments: 03:09 [facility] Payment Agreement [facility] 12:05 T-Sheet-- Draft Copy Chart Complete MTDD
== END 2016-09-26 01:52 | disposition home or self-care (01) ==
LOC: M ED 22:28
DX: R10.2 Pelvic and perineal pain (principal); N94.89 Other specified conditions associated with female genital organs and menstrual cycle; G43.909 Migraine, unspecified, not intractable, without status migrainosus; Z79.3 Long term (current) use of hormonal contraceptives

== ENCOUNTER 2016-09-30 23:14 | Emergency (ER) | payer OTHER ==
[2016-10-01] MEDS ORDERED: KETOROLAC 30 MG/ML VIAL (J1885) As Ordered ONE (01:19)
[2016-10-01] MEDS ORDERED: ACETAMINOPHEN/CODEINE #3 TABLET (BULK) As Ordered ONE (01:36)
--- NOTE | 2016-10-01 02:03 | EDDOCDS ---
Nurse's Notes [facility] Name: Gosia Bishop Age: 26 yrs Sex: Female : 1990 Arrival Date: 09/30/2016 Time: 23:14 Bed D1 Private MD: Patrick Leahy Abdul Diagnosis: Other specified conditions associated with female genital organs and menstrual cycle-pelvic congestion syndrome;Chronic pain syndrome Presentation: 09/30 23:36 Presenting complaint: Patient states: Low abdominal and pelvic pain. Denies vaginal kmg1 bleeding. Had a positive test 2 days ago. Risk factors: the patient reports no vaginal bleeding. Adult Sepsis Screening: The patient does not have new or worsening altered mentation. Patient's respiratory rate is less than 22. Systolic blood pressure is greater than 100. Patient has a qSOFA score of 0- Negative Sepsis Screen. Suicide/Homicide risk assessment- the patient denies having any suicidal and/or homicidal ideations and does not present with any other emotional, behavioral or mental health complaints. Status: Patient is not a regional service manager or dependent. Transition of care: patient was not received from another setting of care. 23:36 Acuity: ROSETTE Level 3 kmg1 23:36 Method Of Arrival: Walkin/Carried/Asstd kmg1 Triage Assessment: 23:38 General: Appears in no apparent distress, uncomfortable, Behavior is appropriate for kmg1 age, cooperative, pleasant. Pain: Location: suprapubic area Pain currently is 10 out of 10 on a pain scale. Quality of pain is described as crampy, throbbing. HIV screening NA for this visit Offered previously. GI: Abdomen is flat, non- distended Reports lower abdominal pain, nausea, vomiting. : Denies vaginal bleeding. 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 Has not had kmg1 a period yet Historical: - Allergies: No known drug Allergies; - Home Meds: 1. Depo-Provera 150 mg/mL IM syrg every 3 mo Missed last shot that was due in July - PMHx: Migraines; pelvic congestive syndrome; - PSHx: none; - The history from nurses notes was reviewed: and I agree with what is documented. - Social history: Smoking status: Patient states was never smoker of tobacco. No barriers to communication noted, The patient speaks fluent Cypriot, Speaks appropriately for age. - Family history: Not pertinent, No immediate family members are acutely ill. - : The pt / caregiver states he / she is not on anticoagulants. Home medication list is obtained from the patient. - Hospitalizations: : No recent hospitalization is reported. - Exposure Risk Screening:: None identified. - Immunization history:: All immunizations up-to-date. - Social history:: the patient smokes cigarettes the patient drinks alcohol. Screenin/26 00:44 Screening information is obtained from the patient. Fall risk: No risks identified. mlc Assistance ADL's: requires no assistance with activities of daily living. Abuse/DV Screen: The patient / caregiver reports he/she is: not in a situation that causes fear, pain or injury. Nutritional screening: No deficits noted. Advance Directives: Currently, there is no health care proxy. There is no Power of Dress Fitter. home support is adequate. Assessment: 00:44 General: Appears in no apparent distress, comfortable, Behavior is cooperative. Pain: mlc Location: suprapubic area, right lower quadrant and left lower quadrant Pain currently is 10 out of 10 on a pain scale. Quality of pain is described as squeezing, throbbing. Neurological: Level of Consciousness is awake, alert, obeys commands, Oriented to person, place, time. Respiratory: Airway is patent Respiratory effort is even, unlabored, Respiratory pattern is regular. GI: Abdomen is flat, non- distended Bowel sounds present X 4 quads. Abd is soft X 4 quads Abd is tender to palpation X 4 quads. Reports nausea. Derm: Skin is pink, warm & dry. 01:25 Reassessment: Patient appears in no apparent distress at this time. pt medicated per mlc order. 01:29 Reassessment: pt reports immediate increase in pain/symptoms after medication mlc administration. site is clear, so swelling. pt denies any other symptoms besides pain. . 01:45 General: Appears in no apparent distress, Behavior is cooperative, crying. Pain: Pain mlc currently is 10 out of 10 on a pain scale. Neurological: Level of Consciousness is awake, alert, Oriented to person, place, time. Respiratory: Airway is patent Respiratory effort is even, unlabored, Respiratory pattern is regular. Vital Signs: 09/30 23:16 BP 121 / 75; Pulse 108; Resp 18 S; Temp 98.7(O); Pulse Ox 99% on R/A; Weight 49.9 kg gr2 (R); Height 5 ft. 5 in. (165.10 cm) (R); Pain 8/10; 10/01 01:45 BP 119 / 75; Pulse 78; Resp 20; Temp 99.0; Pulse Ox 100% ; Pain 10/10; mlc 09/30 23:16 Body Mass Index 18.30 (49.90 kg, 165.10 cm) gr2 Vitals: 09/30 23:16 Log In Time: September 30, 2016 at 23:16. gr2 ED Course: 23:15 Patient visited by Skip Gallagher. gr2 23:15 Patient moved to Waiting gr2 23:16 Patrick Leahy is Private Physician. gr2 23:17 Patient visited by Skip Gallagher. gr2 23:17 Patient moved to Pre RCE gr2 23:37 Triage Initiated kmg1 10/01 00:27 Patient moved to Waiting kmg1 00:27 Patient moved to Pre RCE cz 00:37 Tran Angel,RN is Primary Nurse. cz 00:37 Patient moved to 7 cz 00:46 Patient visited by Tran Angel,ОЛЬГА. mlc 00:53 Osiel Reyes MD is Attending Physician. pc 01:01 Patient visited by Osiel Reyes MD. pc 01:25 Patient visited by Tran Angel,ОЛЬГА. mlc 01:30 Patient visited by Tran Angel,ОЛЬГА. mlc 01:32 Murali Wen MD is Referral Physician. pc 01:45 The patient / caregiver is instructed regarding the plan of care and ED course. mlc 01:45 No IV's were initiated during this patient's visit. No procedures done that require mlc assistance. 02:01 Patient moved to D1 cz Administered Medications: :25 Drug: ketorolac 60 mg [ketorolac 30 mg/mL (1 mL) injection solution (2 mL)] Route: IM; mlc Site: right gluteus; :44 Follow up: Response: No Adverse Reaction; No significant change. mlc 01:44 Drug: Acetaminophen-Codeine, 4 pack- 1 packets [acetaminophen 300 mg-codeine 30 mg mlc tablet (1 tabs)] {Co-Signature: cf2 (Josiane Dalal RN).} Route: PO; 01:44 Follow up: Response: [place] [facility] [place] Testing: Urine : 01:08 hCG Reading: Negative; Control Reading: Positive; mlc Ranges: Order Results: There are currently no results for this order. Outcome: 01:32 Discharge ordered by Provider. pc 01:45 Discharge Assessment: Patient awake, alert and oriented x 3. No cognitive and/or mlc functional deficits noted. Patient verbalized understanding of disposition instructions. patient administered narcotics - no. The following High Risk Discharge criteria are identified: None. Discharged to home ambulatory, with significant other. Condition: good Condition: stable. Discharge instructions given to patient, Instructed on discharge instructions, follow up and referral plans. medication usage, Demonstrated understanding of instructions, medications, Pt was receptive of discharge instructions/ teaching. No special radiology studies were completed. Property sent home with patient. 02:02 Patient left the ED. ml3 Signatures: Osiel Reyes MD MD pc Garrison, Kelly, RN RN [facility] Rosendo Marino RN RN Florence Hansen, Loom Stop Checker Unit ml3 Skip Gallagher gr2 Tran Angel RN RN [facility] [place] Josiane Dalal RN cf2 MTDD
--- NOTE | 2016-10-01 02:03 | EDDOCDS ---
Physician Documentation [facility] Name: Gosia Bishop Age: 26 yrs Sex: Female : 1990 Arrival Date: 09/30/2016 Time: 23:14 Bed D1 Private MD: Patrick Leahy Abdul Disposition: 10/01 01:08 Critical Care: Critical care not applicable. pc Disposition: 10/01/16 01:32 Discharged to Home/Self Care. Impression: Other specified conditions associated with female genital organs and menstrual cycle - pelvic congestion syndrome, Chronic pain syndrome. - Condition is Stable. - Discharge Instructions: Chronic Pain, Pelvic Pain, Female. - Medication Reconciliation, Local Pharmacy Hours form. - Follow up: Murali Wen; When: Tomorrow; Reason: for further pain management. - Problem is chronic. - Symptoms are unchanged. HPI: 01:01 This 26 yrs old Female presents to ER via Walkin/Carried/Asstd with pc complaints of Pain, Pelvic, Abdominal Pain. 01:01 The history is obtained from the patient. She has chronic pelvic pain, followed by Dr. kevin Wen. She presents stating she may be . She has been in the ED a number of times in the past 2 months for the same, receiving opioid each timer. Her iSTOP shows she has been receiving opioid only from provided in this ED, except once by an OBGYN last year. She denies any new symptoms, denies any vaginal discharge, dysuria or frequency. At their worst, the symptoms were a 8 out of 10. In the emergency department, the symptoms are a 8 out of 10. The patient has experienced similar episodes in the past, chronically. The patient has been recently seen by Dr. Wen, 3 day(s) ago, with similar presenting complaints, and she admits she "never asks him for pain meds". Historical: - Allergies: No known drug Allergies; - Home Meds: 1. Depo-Provera 150 mg/mL IM syrg every 3 mo Missed last shot that was due in July - PMHx: Migraines; pelvic congestive syndrome; - PSHx: none; - The history from nurses notes was reviewed: and I agree with what is documented. - Social history: Smoking status: Patient states was never smoker of tobacco. No barriers to communication noted, The patient speaks fluent Paraguayan, Speaks appropriately for age. - Family history: Not pertinent, No immediate family members are acutely ill. - : The pt / caregiver states he / she is not on anticoagulants. Home medication list is obtained from the patient. - Hospitalizations: : No recent hospitalization is reported. - Exposure Risk Screening:: None identified. - Immunization history:: All immunizations up-to-date. - Social history:: the patient smokes cigarettes the patient drinks alcohol. 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 Has not had kmg1 a period yet ROS: 10/01 01:01 All systems are negative except as listed. pc Exam: 01:01 General Appearance: no acute distress, alert, laying on bed, laughing at TV show. pc 01:01 Respiratory: no respiratory distress, normal breath sounds. 01:01 CVS: regular pulse rate, regular rhythm, normal S1 and S2, no murmurs, strong peripheral pulses. 01:01 Abdomen: soft, non-tender, no organomegaly, normal bowel sounds. 01:01 Back: normal inspection. 01:01 : Pelvic Exam: The exam is refused by the patient/guardian. The risks and consequences are understood by the patient. Vital Signs: 09/30 23:16 BP 121 / 75; Pulse 108; Resp 18 S; Temp 98.7(O); Pulse Ox 99% on R/A; Weight 49.9 kg / gr2 110.01 lbs (R); Height 5 ft. 5 in. (165.10 cm) (R); Pain 8/10; 10/01 01:45 BP 119 / 75; Pulse 78; Resp 20; Temp 99.0; Pulse Ox 100% ; Pain 10/10; mlc 09/30 23:16 Body Mass Index 18.30 (49.90 kg, 165.10 cm) gr2 MDM: 00:56 Data reviewed: The patient's [facility] records were accessed, reference # [id number]. pc 01:01 UCG by Nursing ordered. pc 01:01 Differential Diagnosis: chronic pelvic pain, ?. Plan: UCG. Data reviewed: old medical records, vital signs, nurses notes. 01:08 Data reviewed: lab test results. Test interpretation: LAB - all labs as ordered have pc been reviewed, interpreted and considered in the overall management of the clinical presentation;. The patient has been re-examined and re-evaluated. The clinical presentation did not require any ED treatment or interventions. Disposition: The historical points, examination findings, and any diagnostic results supporting the provided diagnosis, were discussed with the patient or legal guardian. The need for outpatient follow up with the provider listed on their discharge instructions was discussed. They were encouraged to return to [facility], or the nearest ED, if symptoms worsen/persist, or for any other questions/concerns. 01:09 ketorolac 60 mg IM once ordered. pc 01:32 Acetaminophen-Codeine, 4 pack- 300 mg-30 mg 1 packets PO once; Dispense with patient. pc Take per package instructions. ordered. 01:50 Financial registration complete. hs2 Point of Care Testing: Urine : 01:08 hCG Reading: Negative; Control Reading: Positive; mlc Ranges: Administered Medications: 01:25 Drug: ketorolac 60 mg [ketorolac 30 mg/mL (1 mL) injection solution (2 mL)] Route: IM; mlc Site: right gluteus; :44 Follow up: Response: No Adverse Reaction; No significant change. mlc 01:44 Drug: Acetaminophen-Codeine, 4 pack- 1 packets [acetaminophen 300 mg-codeine 30 mg mlc tablet (1 tabs)] {Co-Signature: cf2 (Josiane Dalal RN).} Route: PO; :44 Follow up: Response: Med's dispensed home mlc Signatures: Osiel Reyes MD MD Katheryn Christiansen RN RN [facility] [place] Florence Hansen, Machine Assembler Unit ml3 Tran Angel RN RN [facility] [place] Nery Quiñones, Reg Reg hs2 Josiane Dalal RN cf2 MTDD
--- NOTE | 2016-10-03 03:03 | EDDOCDS ---
Physician Documentation [facility] Name: Gosia Bishop Age: 26 yrs Sex: Female : 1990 Arrival Date: 09/30/2016 Time: 23:14 Bed D1 Private MD: Patrick Leahy Abdul Disposition: 10/01 01:08 Critical Care: Critical care not applicable. pc Disposition: 10/01/16 01:32 Discharged to Home/Self Care. Impression: Other specified conditions associated with female genital organs and menstrual cycle - pelvic congestion syndrome, Chronic pain syndrome. - Condition is Stable. - Discharge Instructions: Chronic Pain, Pelvic Pain, Female. - Medication Reconciliation, Local Pharmacy Hours form. - Follow up: Murali Wen; When: Tomorrow; Reason: for further pain management. - Problem is chronic. - Symptoms are unchanged. HPI: 01:01 This 26 yrs old Female presents to ER via Walkin/Carried/Asstd with pc complaints of Pain, Pelvic, Abdominal Pain. 01:01 The history is obtained from the patient. She has chronic pelvic pain, followed by Dr. kevin Wen. She presents stating she may be . She has been in the ED a number of times in the past 2 months for the same, receiving opioid each timer. Her iSTOP shows she has been receiving opioid only from provided in this ED, except once by an OBGYN last year. She denies any new symptoms, denies any vaginal discharge, dysuria or frequency. At their worst, the symptoms were a 8 out of 10. In the emergency department, the symptoms are a 8 out of 10. The patient has experienced similar episodes in the past, chronically. The patient has been recently seen by Dr. Wen, 3 day(s) ago, with similar presenting complaints, and she admits she "never asks him for pain meds". Historical: - Allergies: No known drug Allergies; - Home Meds: 1. Depo-Provera 150 mg/mL IM syrg every 3 mo Missed last shot that was due in July - PMHx: Migraines; pelvic congestive syndrome; - PSHx: none; - The history from nurses notes was reviewed: and I agree with what is documented. - Social history: Smoking status: Patient states was never smoker of tobacco. No barriers to communication noted, The patient speaks fluent Kuwaiti, Speaks appropriately for age. - Family history: Not pertinent, No immediate family members are acutely ill. - : The pt / caregiver states he / she is not on anticoagulants. Home medication list is obtained from the patient. - Hospitalizations: : No recent hospitalization is reported. - Exposure Risk Screening:: None identified. - Immunization history:: All immunizations up-to-date. - Social history:: the patient smokes cigarettes the patient drinks alcohol. 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 Has not had kmg1 a period yet ROS: 10/01 01:01 All systems are negative except as listed. pc Exam: 01:01 General Appearance: no acute distress, alert, laying on bed, laughing at TV show. pc 01:01 Respiratory: no respiratory distress, normal breath sounds. 01:01 CVS: regular pulse rate, regular rhythm, normal S1 and S2, no murmurs, strong peripheral pulses. 01:01 Abdomen: soft, non-tender, no organomegaly, normal bowel sounds. 01:01 Back: normal inspection. 01:01 : Pelvic Exam: The exam is refused by the patient/guardian. The risks and consequences are understood by the patient. Vital Signs: 09/30 23:16 BP 121 / 75; Pulse 108; Resp 18 S; Temp 98.7(O); Pulse Ox 99% on R/A; Weight 49.9 kg / gr2 110.01 lbs (R); Height 5 ft. 5 in. (165.10 cm) (R); Pain 8/10; 10/01 01:45 BP 119 / 75; Pulse 78; Resp 20; Temp 99.0; Pulse Ox 100% ; Pain 10/10; mlc 09/30 23:16 Body Mass Index 18.30 (49.90 kg, 165.10 cm) gr2 MDM: 00:56 Data reviewed: The patient's [facility] records were accessed, reference # [id number]. pc 01:01 UCG by Nursing ordered. pc 01:01 Differential Diagnosis: chronic pelvic pain, ?. Plan: UCG. Data reviewed: old medical records, vital signs, nurses notes. 01:08 Data reviewed: lab test results. Test interpretation: LAB - all labs as ordered have pc been reviewed, interpreted and considered in the overall management of the clinical presentation;. The patient has been re-examined and re-evaluated. The clinical presentation did not require any ED treatment or interventions. Disposition: The historical points, examination findings, and any diagnostic results supporting the provided diagnosis, were discussed with the patient or legal guardian. The need for outpatient follow up with the provider listed on their discharge instructions was discussed. They were encouraged to return to [facility], or the nearest ED, if symptoms worsen/persist, or for any other questions/concerns. 01:09 ketorolac 60 mg IM once ordered. pc 01:32 Acetaminophen-Codeine, 4 pack- 300 mg-30 mg 1 packets PO once; Dispense with patient. pc Take per package instructions. ordered. 01:50 Financial registration complete. hs2 02:39 [facility] Payment Agreement was scanned into Info and attached to record. pm4 Point of Care Testing: Urine : 01:08 hCG Reading: Negative; Control Reading: Positive; mlc Ranges: Administered Medications: 01:25 Drug: ketorolac 60 mg [ketorolac 30 mg/mL (1 mL) injection solution (2 mL)] Route: IM; mlc Site: right gluteus; :44 Follow up: Response: No Adverse Reaction; No significant change. mlc 01:44 Drug: Acetaminophen-Codeine, 4 pack- 1 packets [acetaminophen 300 mg-codeine 30 mg mlc tablet (1 tabs)] {Co-Signature: cf2 (Josiane Dalal RN).} Route: PO; 01:44 Follow up: Response: Med's dispensed home mlc Signatures: Osiel Reyes MD MD Katheryn Christiansen, ОЛЬГА RN kmg1 Florence Hansen, Subcontract Manager Unit ml3 Tran Angel RN RN mlc Stanton, Hillary, Reg Reg hs2 Joseph Danielson, Reg Reg pm4 Josiane Dalal RN cf2 The chart was reviewed and I authenticate all verbal orders and agree with the evaluation and treatment provided.Attachments: 02:39 [facility] Payment Agreement pm4 Chart Complete MTDD
--- NOTE | 2016-10-03 03:04 | EDDOCDS ---
Nurse's Notes [facility] Name: Gosia Bishop Age: 26 yrs Sex: Female : 1990 Arrival Date: 09/30/2016 Time: 23:14 Bed D1 Private MD: Patrick Leahy Abdul Diagnosis: Other specified conditions associated with female genital organs and menstrual cycle-pelvic congestion syndrome;Chronic pain syndrome Presentation: 09/30 23:36 Presenting complaint: Patient states: Low abdominal and pelvic pain. Denies vaginal kmg1 bleeding. Had a positive test 2 days ago. Risk factors: the patient reports no vaginal bleeding. Adult Sepsis Screening: The patient does not have new or worsening altered mentation. Patient's respiratory rate is less than 22. Systolic blood pressure is greater than 100. Patient has a qSOFA score of 0- Negative Sepsis Screen. Suicide/Homicide risk assessment- the patient denies having any suicidal and/or homicidal ideations and does not present with any other emotional, behavioral or mental health complaints. 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 Transition of care: patient was not received from another setting of care. 23:36 Acuity: ROSETTE Level 3 kmg1 23:36 Method Of Arrival: Walkin/Carried/Asstd kmg1 Triage Assessment: 23:38 General: Appears in no apparent distress, uncomfortable, Behavior is appropriate for kmg1 age, cooperative, pleasant. Pain: Location: suprapubic area Pain currently is 10 out of 10 on a pain scale. Quality of pain is described as crampy, throbbing. HIV screening NA for this visit Offered previously. GI: Abdomen is flat, non- distended Reports lower abdominal pain, nausea, vomiting. : Denies vaginal bleeding. 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 Has not had kmg1 a period yet Historical: - Allergies: No known drug Allergies; - Home Meds: 1. Depo-Provera 150 mg/mL IM syrg every 3 mo Missed last shot that was due in July - PMHx: Migraines; pelvic congestive syndrome; - PSHx: none; - The history from nurses notes was reviewed: and I agree with what is documented. - Social history: Smoking status: Patient states was never smoker of tobacco. No barriers to communication noted, The patient speaks fluent Mongolian, Speaks appropriately for age. - Family history: Not pertinent, No immediate family members are acutely ill. - : The pt / caregiver states he / she is not on anticoagulants. Home medication list is obtained from the patient. - Hospitalizations: : No recent hospitalization is reported. - Exposure Risk Screening:: None identified. - Immunization history:: All immunizations up-to-date. - Social history:: the patient smokes cigarettes the patient drinks alcohol. Screenin/26 00:44 Screening information is obtained from the patient. Fall risk: No risks identified. mlc Assistance ADL's: requires no assistance with activities of daily living. Abuse/DV Screen: The patient / caregiver reports he/she is: not in a situation that causes fear, pain or injury. Nutritional screening: No deficits noted. Advance Directives: Currently, there is no health care proxy. There is no Power of Cashier Manager. home support is adequate. Assessment: 00:44 General: Appears in no apparent distress, comfortable, Behavior is cooperative. Pain: mlc Location: suprapubic area, right lower quadrant and left lower quadrant Pain currently is 10 out of 10 on a pain scale. Quality of pain is described as squeezing, throbbing. Neurological: Level of Consciousness is awake, alert, obeys commands, Oriented to person, place, time. Respiratory: Airway is patent Respiratory effort is even, unlabored, Respiratory pattern is regular. GI: Abdomen is flat, non- distended Bowel sounds present X 4 quads. Abd is soft X 4 quads Abd is tender to palpation X 4 quads. Reports nausea. Derm: Skin is pink, warm & dry. 01:25 Reassessment: Patient appears in no apparent distress at this time. pt medicated per mlc order. 01:29 Reassessment: pt reports immediate increase in pain/symptoms after medication mlc administration. site is clear, so swelling. pt denies any other symptoms besides pain. . 01:45 General: Appears in no apparent distress, Behavior is cooperative, crying. Pain: Pain mlc currently is 10 out of 10 on a pain scale. Neurological: Level of Consciousness is awake, alert, Oriented to person, place, time. Respiratory: Airway is patent Respiratory effort is even, unlabored, Respiratory pattern is regular. Vital Signs: 09/30 23:16 BP 121 / 75; Pulse 108; Resp 18 S; Temp 98.7(O); Pulse Ox 99% on R/A; Weight 49.9 kg gr2 (R); Height 5 ft. 5 in. (165.10 cm) (R); Pain 8/10; 10/01 01:45 BP 119 / 75; Pulse 78; Resp 20; Temp 99.0; Pulse Ox 100% ; Pain 10/10; mlc 09/30 23:16 Body Mass Index 18.30 (49.90 kg, 165.10 cm) gr2 Vitals: 09/30 23:16 Log In Time: September 30, 2016 at 23:16. gr2 ED Course: 23:15 Patient visited by Skip Gallagher. gr2 23:15 Patient moved to Waiting gr2 23:16 Patrick Leahy is Private Physician. gr2 23:17 Patient visited by Skip Gallagher. gr2 23:17 Patient moved to Pre RCE gr2 23:37 Triage Initiated kmg1 10/01 00:27 Patient moved to Waiting kmg1 00:27 Patient moved to Pre RCE cz 00:37 Tran Angel,RN is Primary Nurse. cz 00:37 Patient moved to 7 cz 00:46 Patient visited by Tran Angel,ОЛЬГА. mlc 00:53 Osiel Reyes MD is Attending Physician. pc 01:01 Patient visited by Osiel Reyes MD. pc 01:25 Patient visited by Tran Angel,ОЛЬГА. mlc 01:30 Patient visited by Tran Angel,ОЛЬГА. mlc 01:32 Murali Wen MD is Referral Physician. pc 01:45 The patient / caregiver is instructed regarding the plan of care and ED course. mlc 01:45 No IV's were initiated during this patient's visit. No procedures done that require mlc assistance. 02:01 Patient moved to D1 cz 02:39 [place] Payment Agreement was scanned into [employer] and attached to record. pm4 Administered Medications: 01:25 Drug: ketorolac 60 mg [ketorolac 30 mg/mL (1 mL) injection solution (2 mL)] Route: IM; mlc Site: right gluteus; 01:44 Follow up: Response: No Adverse Reaction; No significant change. mlc 01:44 Drug: Acetaminophen-Codeine, 4 pack- 1 packets [acetaminophen 300 mg-codeine 30 mg mlc tablet (1 tabs)] {Co-Signature: cf2 (Josiane Dalal RN).} Route: PO; 01:44 Follow up: Response: Med's dispensed home mlc Point of Care Testing: Urine : 01:08 hCG Reading: Negative; Control Reading: Positive; mlc Ranges: Order Results: There are currently no results for this order. Outcome: 01:32 Discharge ordered by Provider. 01:45 Discharge Assessment: Patient awake, alert and oriented x 3. No cognitive and/or mlc functional deficits noted. Patient verbalized understanding of disposition instructions. patient administered narcotics - no. The following High Risk Discharge criteria are identified: None. Discharged to home ambulatory, with significant other. Condition: good Condition: stable. Discharge instructions given to patient, Instructed on discharge instructions, follow up and referral plans. medication usage, Demonstrated understanding of instructions, medications, Pt was receptive of discharge instructions/ teaching. No special radiology studies were completed. Property sent home with patient. 02:02 Patient left the ED. ml3 Signatures: Osiel Reyes MD MD Katheryn Christiansen, RN RN kmg1 Rosendo Marino RN RN Florence Hansen, Database Marketing Analyst Unit ml3 Skip Gallagher 2 Tran Angel RN RN [facility] [place] Danielson, Reg Reg pm4 Josiane Dalal RN cf2 Chart Complete MTDD
--- NOTE | 2016-10-03 03:04 | EDDOCDS ---
Physician Documentation [facility] Name: Gosia Bishop Age: 26 yrs Sex: Female : 1990 Arrival Date: 09/30/2016 Time: 23:14 Bed D1 Private MD: Patrick Leahy Abdul Disposition: 10/01 01:08 Critical Care: Critical care not applicable. pc Disposition: 10/01/16 01:32 Discharged to Home/Self Care. Impression: Other specified conditions associated with female genital organs and menstrual cycle - pelvic congestion syndrome, Chronic pain syndrome. - Condition is Stable. - Discharge Instructions: Chronic Pain, Pelvic Pain, Female. - Medication Reconciliation, Local Pharmacy Hours form. - Follow up: Murali Wen; When: Tomorrow; Reason: for further pain management. - Problem is chronic. - Symptoms are unchanged. HPI: 01:01 This 26 yrs old Female presents to ER via Walkin/Carried/Asstd with pc complaints of Pain, Pelvic, Abdominal Pain. 01:01 The history is obtained from the patient. She has chronic pelvic pain, followed by Dr. kevin Wen. She presents stating she may be . She has been in the ED a number of times in the past 2 months for the same, receiving opioid each timer. Her iSTOP shows she has been receiving opioid only from provided in this ED, except once by an OBGYN last year. She denies any new symptoms, denies any vaginal discharge, dysuria or frequency. At their worst, the symptoms were a 8 out of 10. In the emergency department, the symptoms are a 8 out of 10. The patient has experienced similar episodes in the past, chronically. The patient has been recently seen by Dr. Wen, 3 day(s) ago, with similar presenting complaints, and she admits she "never asks him for pain meds". Historical: - Allergies: No known drug Allergies; - Home Meds: 1. Depo-Provera 150 mg/mL IM syrg every 3 mo Missed last shot that was due in July - PMHx: Migraines; pelvic congestive syndrome; - PSHx: none; - The history from nurses notes was reviewed: and I agree with what is documented. - Social history: Smoking status: Patient states was never smoker of tobacco. No barriers to communication noted, The patient speaks fluent Filipino, Speaks appropriately for age. - Family history: Not pertinent, No immediate family members are acutely ill. - : The pt / caregiver states he / she is not on anticoagulants. Home medication list is obtained from the patient. - Hospitalizations: : No recent hospitalization is reported. - Exposure Risk Screening:: None identified. - Immunization history:: All immunizations up-to-date. - Social history:: the patient smokes cigarettes the patient drinks alcohol. 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 Has not had kmg1 a period yet ROS: 10/01 01:01 All systems are negative except as listed. pc Exam: 01:01 General Appearance: no acute distress, alert, laying on bed, laughing at TV show. pc 01:01 Respiratory: no respiratory distress, normal breath sounds. 01:01 CVS: regular pulse rate, regular rhythm, normal S1 and S2, no murmurs, strong peripheral pulses. 01:01 Abdomen: soft, non-tender, no organomegaly, normal bowel sounds. 01:01 Back: normal inspection. 01:01 : Pelvic Exam: The exam is refused by the patient/guardian. The risks and consequences are understood by the patient. Vital Signs: 09/30 23:16 BP 121 / 75; Pulse 108; Resp 18 S; Temp 98.7(O); Pulse Ox 99% on R/A; Weight 49.9 kg / gr2 110.01 lbs (R); Height 5 ft. 5 in. (165.10 cm) (R); Pain 8/10; 10/01 01:45 BP 119 / 75; Pulse 78; Resp 20; Temp 99.0; Pulse Ox 100% ; Pain 10/10; mlc 09/30 23:16 Body Mass Index 18.30 (49.90 kg, 165.10 cm) gr2 MDM: 00:56 Data reviewed: The patient's [facility] records were accessed, reference # [id number]. pc 01:01 UCG by Nursing ordered. pc 01:01 Differential Diagnosis: chronic pelvic pain, ?. Plan: UCG. Data reviewed: old medical records, vital signs, nurses notes. 01:08 Data reviewed: lab test results. Test interpretation: LAB - all labs as ordered have pc been reviewed, interpreted and considered in the overall management of the clinical presentation;. The patient has been re-examined and re-evaluated. The clinical presentation did not require any ED treatment or interventions. Disposition: The historical points, examination findings, and any diagnostic results supporting the provided diagnosis, were discussed with the patient or legal guardian. The need for outpatient follow up with the provider listed on their discharge instructions was discussed. They were encouraged to return to [facility], or the nearest ED, if symptoms worsen/persist, or for any other questions/concerns. 01:09 ketorolac 60 mg IM once ordered. pc 01:32 Acetaminophen-Codeine, 4 pack- 300 mg-30 mg 1 packets PO once; Dispense with patient. pc Take per package instructions. ordered. 01:50 Financial registration complete. hs2 02:39 [facility] Payment Agreement was scanned into [employer] and attached to record. pm4 Point of Care Testing: Urine : 01:08 hCG Reading: Negative; Control Reading: Positive; mlc Ranges: Administered Medications: 01:25 Drug: ketorolac 60 mg [ketorolac 30 mg/mL (1 mL) injection solution (2 mL)] Route: IM; mlc Site: right gluteus; :44 Follow up: Response: No Adverse Reaction; No significant change. mlc 01:44 Drug: Acetaminophen-Codeine, 4 pack- 1 packets [acetaminophen 300 mg-codeine 30 mg mlc tablet (1 tabs)] {Co-Signature: cf2 (Josiane Dalal RN).} Route: PO; 01:44 Follow up: Response: Med's dispensed home mlc Signatures: Osiel Reyes MD MD Katheryn Christiansen, ОЛЬГА RN kmg1 Florence Hansen, Wet Cleaner Machine Unit ml3 Tran Angel RN RN mlc Stanton, Hillary, Reg Reg hs2 Joseph Danielson, Reg Reg pm4 Josiane Dalal RN cf2 The chart was reviewed and I authenticate all verbal orders and agree with the evaluation and treatment provided.Attachments: 02:39 [facility] Payment Agreement pm4 Chart Complete MTDD
== END 2016-10-01 02:02 | disposition home or self-care (01) ==
LOC: M ED 23:14
DX: N94.89 Other specified conditions associated with female genital organs and menstrual cycle (principal); G89.4 Chronic pain syndrome; G43.909 Migraine, unspecified, not intractable, without status migrainosus; Z79.3 Long term (current) use of hormonal contraceptives
CPT/HCPCS: 81025; 96372; 99283; J1885

== ENCOUNTER → 2017-01-11 | Outpatient (CLI) | payer MEDICAID, SELFPAY | LOC: M OUTALCOH 08:12 | PROVIDERS: ATTEND Psychiatry & Neurology Psychiatry | DX: Z13.9 Encounter for screening, unspecified (principal); F11.20 Opioid dependence, uncomplicated; F12.20 Cannabis dependence, uncomplicated; F13.20 Sedative, hypnotic or anxiolytic dependence, uncomplicated ==

== ENCOUNTER 2017-01-20 16:00 | Outpatient (RCR) | payer SELFPAY | END 2017-02-03 | LOC: M OUTALCOH 16:00 | PROVIDERS: ATTEND Psychiatry & Neurology Psychiatry | DX: F11.20 Opioid dependence, uncomplicated (principal); F12.20 Cannabis dependence, uncomplicated; F13.20 Sedative, hypnotic or anxiolytic dependence, uncomplicated; Z72.0 Tobacco use ==

== ENCOUNTER 2017-06-18 15:05 | Emergency (ER) | payer SELFPAY ==
[~2017-06-18] VITALS: Ht 165.1 cm; Wt 50.0 kg
[2017-06-18] MEDS ORDERED: ONDANSETRON 4MG/2ML VIAL (J2405) IV ONE (16:00)
[2017-06-18] MEDS ORDERED: NS 1,000 ML IV ONE (16:00)
[2017-06-18] MEDS: MORPHINE 4 MG/ML 1ML SYRINGE IV PRN ×2 (17:00→18:12)
[2017-06-18 17:25] LABS: BASO # 0.1 10^3/uL (0.0-0.2); BASO % 0.6 % (0.0-1.0); EOS % 0.2 % (0.0-3.0); LYMPH # 2.2 10^3/uL (1.5-6.5); LYMPH % 16.4 % (24.0-44.0); MEAN CORPUSCULAR HEMOGLOBIN 29.7 pg (27.0-33.0); MEAN CORPUSCULAR VOLUME 87.3 fl (80.0-96.0); MONO # 0.7 10^3/uL (0.0-0.8); MONO % 5.3 % (0.0-5.0); NEUTROPHILS # 10.2 10^3/uL (1.8-7.7); NEUTROPHILS % 76.5 % (36.0-66.0); PLATELET COUNT, AUTOMATED 238 10^3/uL (150-450); RED CELL DISTRIBUTION WIDTH 14.3 % (11.5-14.5); WHITE BLOOD COUNT 13.3 10^3/uL (4.0-10.0)
[2017-06-18 17:59] LABS: ALBUMIN 4.1 GM/DL (3.2-5.2); ALBUMIN/GLOBULIN RATIO 1.17 (1.00-1.93); ALKALINE PHOSPHATASE 89 U/L (45-117); ALT/SGPT 15 U/L (12-78); ANION GAP 10 MEQ/L (8-16); AST/SGOT 11 U/L (15-37); BILIRUBIN,DIRECT 0.2 MG/DL (0.0-0.2); BILIRUBIN,TOTAL 0.4 MG/DL (0.2-1.0); BLOOD UREA NITROGEN 7 MG/DL (7-18); CALCIUM LEVEL 9.5 MG/DL (8.5-10.1); CARBON DIOXIDE LEVEL 25 MEQ/L (21-32); CHLORIDE LEVEL 107 MEQ/L (98-107); CREATININE FOR GFR 0.51 MG/DL (0.55-1.02); GLOMERULAR FILTRATION RATE > 60.0 (>60); GLUCOSE, FASTING 96 MG/DL (70-105); POTASSIUM SERUM 3.6 MEQ/L (3.5-5.1); SODIUM LEVEL 142 MEQ/L (136-145); TOTAL PROTEIN 7.6 GM/DL (6.4-8.2)
--- NOTE | 2017-06-18 18:38 | REP ---
Pelvic sonography: History: History of pelvic congestion syndrome. Comparison pelvic sonography May 01, 2016. Pelvic pain. Findings: Transabdominal and transvaginal scanning are performed. Uterine dimensions are 8.6 x 3.5 x 6.5 cm. Endometrial echo measures 0.6 cm in thickness. No focal uterine mass is seen. No free fluid is noted. Visualized bladder josue are smooth. Right ovarian dimensions are 3.0 x 1.4 x 1.4 cm. Left ovary measures 3.1 x 1.8 x 1.9 cm. No ovarian abnormality is seen. Ovarian Doppler flow is normal bilaterally. Resistive indices are 0.52 on the right and 0.56 on the left. No evidence to suggest torsion. Impression: Unremarkable pelvic sonography. Signed by Vladimir Dueñas MD 06/18/2017 07:25 P
[2017-06-18] MEDS ORDERED: PERC5TAB12 PO (19:57)
[2017-06-18] MEDS ORDERED: FLAG500T PO (19:57)
[2017-06-18] MEDS ORDERED: KEFL500C17 PO (19:57)
[2017-06-18 20:12] VITALS: BP 135/91
[2017-06-18] MEDS ORDERED: metroNIDAZOLE (FLAGYL) 500 MG TAB PO ONE (20:15)
[2017-06-18] MEDS ORDERED: PERCOCET 5MG/325MG TAB PO ONE (20:15)
[2017-06-18] MEDS ORDERED: CEPHALEXIN 500 MG CAP PO ONE (20:15)
== END 2017-06-18 20:25 | disposition home or self-care (01) ==
LOC: M ED 15:05
DX: N76.0 Acute vaginitis (principal); L73.9 Follicular disorder, unspecified; F41.9 Anxiety disorder, unspecified; F32.9 Major depressive disorder, single episode, unspecified; N94.89 Other specified conditions associated with female genital organs and menstrual cycle; F17.290 Nicotine dependence, other tobacco product, uncomplicated
CPT/HCPCS: 36415; 76830; 76856; 80048; 80076; 81001; 81025; 83690; 85025; 87210; 87491; 87591; 93976; 96374; 96375; 99284; J2405

== ENCOUNTER → 2018-05-30 | Outpatient (CLI) | payer SELFPAY | LOC: M RAD 10:44 | DX: Z36.9 Encounter for antenatal screening, unspecified (principal); Z3A.28 28 weeks gestation of pregnancy | CPT/HCPCS: 76820 ==

== ENCOUNTER 2018-05-31 17:21 | Emergency (ER) | payer MEDICAID, SELFPAY ==
[2018-05-31] MEDS: ALBUTEROL SULFATE 2.5 MG/0.5 ML INH NEB SOLN NEB ×2 (20:15)
[2018-05-31] MEDS: BENZONATATE 100 MG CAP PO ×2 (20:16)
[2018-05-31] MEDS: ACETAMINOPHEN 325 MG TAB PO ×2 (20:22)
[2018-05-31 20:23] LABS: BASO # 0.1 10^3/uL (0.0-0.2); BASO % 0.6 % (0.0-1.0); EOS # 0.1 10^3/uL (0.0-0.50); EOS % 0.7 % (0.0-3.0); HEMATOCRIT 34.8 % (36.0-47.0); IMMATURE GRANULOCYTE % 1.3 % (0-3.0); LYMPH # 1.9 10^3/uL (1.5-6.5); LYMPH % 17.7 % (24.0-44.0); MEAN CORPUSCULAR HEMOGLOBIN 31.5 pg (27.0-33.0); MEAN CORPUSCULAR HGB CONC 34.5 g/dl (32.0-36.5); MEAN CORPUSCULAR VOLUME 91.3 fl (80.0-96.0); MONO # 0.7 10^3/uL (0.0-0.8); MONO % 6.6 % (0.0-5.0); NEUTROPHILS # 7.9 10^3/uL (1.8-7.7); NEUTROPHILS % 73.1 % (36.0-66.0); PLATELET COUNT, AUTOMATED 227 10^3/uL (150-450); RED BLOOD COUNT 3.81 10^6/uL (4.00-5.40); RED CELL DISTRIBUTION WIDTH 13.3 % (11.5-14.5); WHITE BLOOD COUNT 10.8 10^3/uL (4.0-10.0)
[2018-05-31 20:46] LABS: ANION GAP 12 MEQ/L (8-16); BLOOD UREA NITROGEN 4 MG/DL (7-18); CALCIUM LEVEL 9.1 MG/DL (8.5-10.1); CARBON DIOXIDE LEVEL 22 MEQ/L (21-32); CHLORIDE LEVEL 108 MEQ/L (98-107); CREATININE FOR GFR 0.43 MG/DL (0.55-1.30); GLOMERULAR FILTRATION RATE > 60.0 (>60); GLUCOSE, FASTING 81 MG/DL (70-100); SODIUM LEVEL 142 MEQ/L (136-145)
[2018-05-31 21:00] LABS: KETONE, URINE AUTO RFX NEGATIVE (NEGATIVE); MUCUS, URINE RFX SMALL (NEGATIVE); NITRITE, URINE AUTO RFX NEGATIVE (NEGATIVE); RBC, URINE AUTO RFX 2 /HPF (0-3); SPECIFIC GRAVITY UR AUTO RFX 1.011 (1.002-1.035); SQUAM EPITHELIAL CELL UR AURFX 1 /HPF (0-6); WBC, URINE AUTO RFX 7 /HPF (0-3)
[2018-05-31 21:01] LABS: LEUKOCYTE ESTERASE UR AUTO RFX TRACE (NEGATIVE)
== END 2018-05-31 22:24 | disposition home or self-care (01) ==
LOC: M ED 17:21
DX: O99.513 Diseases of the respiratory system complicating pregnancy, third trimester (principal); O26.893 Other specified pregnancy related conditions, third trimester; O99.333 Smoking (tobacco) complicating pregnancy, third trimester; Z3A.29 29 weeks gestation of pregnancy; Z79.899 Other long term (current) drug therapy
CPT/HCPCS: 80048

== ENCOUNTER 2018-08-12 10:00 | Inpatient (IN) | payer OTHER, MEDICAID ==
[2018-08-12 11:17] LABS: HEMATOCRIT 34.2 % (36.0-47.0); HEMOGLOBIN 11.6 g/dl (12.0-15.5); MEAN CORPUSCULAR HEMOGLOBIN 29.4 pg (27.0-33.0); MEAN CORPUSCULAR HGB CONC 33.9 g/dl (32.0-36.5); MEAN CORPUSCULAR VOLUME 86.6 fl (80.0-96.0); PLATELET COUNT, AUTOMATED 258 10^3/uL (150-450); RED BLOOD COUNT 3.95 10^6/uL (4.00-5.40); RED CELL DISTRIBUTION WIDTH 13.3 % (11.5-14.5); WHITE BLOOD COUNT 12.5 10^3/uL (4.0-10.0)
[2018-08-12] MEDS ORDERED: PENICILLIN G POTASSIUM IV 5 MU in D5W MINI-BAG PLUS 100 ML IV (12:12)
[2018-08-12] MEDS ORDERED: OXYTOCIN 30 UNITS IN 0.9% NaCl 500ML IV BAG (J2590) As Ordered (12:17)
[2018-08-12] MEDS ORDERED: FENTANYL 2MCG/ML ROPIVACAINE 0.2% IN 0.9% NACL 100ML IVBAG As Ordered (12:17)
[2018-08-12] MEDS ORDERED: PENICILLIN G POTASSIUM 5 MU VIAL As Ordered (12:23)
[2018-08-12] MEDS: LACTATED RINGER'S 1000 ML IV (12:28)
[2018-08-12] MEDS: LR 1,000 ML IV ×3 (12:28→22:02)
[2018-08-12] MEDS: PENICILLIN G POTASSIUM IV 5 MU in D5W MINI-BAG PLUS 100 ML IV (12:32)
[2018-08-12 12:45] LABS: RUBELLA IgG QUALITATIVE IMMUNE (IMMUNE)
[2018-08-12] MEDS: FENTANYL/ROPIVACAINE/NACL BAG 100 ML EPIDURAL (12:45)
[2018-08-12 12:53] LABS: HBSAG L&D NEGATIVE (NEGATIVE)
[2018-08-12] MEDS ORDERED: ONDANSETRON 4MG/2ML VIAL (J2405) IV ×2 (13:00→22:15)
[2018-08-12] MEDS ORDERED: ePHEDrine SULFATE 25 MG/5 ML(5MG/ML) SYRINGE IV (13:00)
[2018-08-12] MEDS ORDERED: diphenhydrAMINE INJ 50MG/ML VIAL (J1200) IV (13:00)
[2018-08-12] MEDS ORDERED: EPIDURAL COMMENT XX (13:00)
[2018-08-12] MEDS ORDERED: REFRIGERATOR IV KEYS XX (13:00)
[2018-08-12] MEDS ORDERED: LACTATED RINGER'S 1000 ML IV (13:00)
[2018-08-12] MEDS ORDERED: NALOXONE INJ 0.4 MG/1 ML VIAL (J2310) IV (13:00)
[2018-08-12] MEDS ORDERED: EPIDURAL/PCA KEYS XX (13:00)
[2018-08-12 14:23] LABS: AMPHETAMINES URINE REFLEX NEGATIVE (NEGATIVE); BARBITURATES URINE REFLEX NEGATIVE (NEGATIVE); BENZODIAZEPINES URINE REFLEX NEGATIVE (NEGATIVE); COCAINE METABOLITE URINE REFLE NEGATIVE (NEGATIVE); METHADONE URINE REFLEX NEGATIVE (NEGATIVE); OPIATES URINE REFLEX NEGATIVE (NEGATIVE); PHENCYCLIDINE URINE REFLEX NEGATIVE (NEGATIVE)
[2018-08-12 14:28] LABS: CANNABINOIDS URINE REFLEX PENDING CONFIRMATION (NEGATIVE)
[2018-08-12] MEDS ORDERED: PENICILLIN G POTASSIUM IV 2.5 MU in APPROPRIATE DILUENT 1 EA IV (16:15)
[2018-08-12] MEDS: PENICILLIN G POTASSIUM IV 2.5 MU in APPROPRIATE DILUENT 1 EA IV ×2 (16:33→20:46)
[2018-08-12 18:19] LABS: HIV 1&2 SCREEN CENTAUR NEGATIVE (NEGATIVE)
[2018-08-12] MEDS: OXYTOCIN DRIP 30 UNITS in APPROPRIATE DILUENT 1 EA IV ×2 (18:25→22:02)
[2018-08-12] MEDS ORDERED: **PENDING PCN ENTRY XX (21:00)
[2018-08-12] MEDS ORDERED: MEASLES,MUMPS,RUBELLA VACCINE INJ (MMR-II) (90707) SC (22:15)
[2018-08-12] MEDS ORDERED: RHOGAM 300 MCG (1500 IU) INJ (J2790) IM (22:15)
[2018-08-12] MEDS ORDERED: DOCUSATE SODIUM 100 MG CAP PO (22:15)
[2018-08-12] MEDS: IBUPROFEN 800 MG TAB PO (23:07)
[2018-08-13] MEDS: DIBUCAINE 1% OINTMENT 30GM TOP (00:07)
[2018-08-13] MEDS: ACETAMINOPHEN 500 MG TAB PO ×2 (00:08→06:10)
[2018-08-13] MEDS: DILUENT IV ×2 (00:36→01:01)
[2018-08-13] MEDS: OXYTOCIN DRIP IV ×2 (00:36→01:01)
[2018-08-13] MEDS: CARBOPROST TROMETHAMINE 250 MCG/ML AMP IM (01:15)
[2018-08-13] MEDS: miSOPROStol 200 MCG TAB (S0191) PR (01:15)
[2018-08-13] MEDS: LOPERAMIDE 2 MG CAP PO (01:39)
[2018-08-13 01:58] LABS: HEMOGLOBIN 13.5 g/dl (12.0-15.5); MEAN CORPUSCULAR HGB CONC 32.9 g/dl (32.0-36.5); MEAN CORPUSCULAR VOLUME 88.2 fl (80.0-96.0); PLATELET COUNT, AUTOMATED 271 10^3/uL (150-450); RED BLOOD COUNT 4.65 10^6/uL (4.00-5.40); RED CELL DISTRIBUTION WIDTH 13.6 % (11.5-14.5); WHITE BLOOD COUNT 17.1 10^3/uL (4.0-10.0)
[2018-08-13 02:08] LABS: INR 0.88
[2018-08-13 02:08] LABS: FIBRINOGEN 495 MG/DL (221-452)
[2018-08-13 02:53] LABS: ALBUMIN 3.1 GM/DL (3.2-5.2); ALBUMIN/GLOBULIN RATIO 0.82 (1.00-1.93); ALKALINE PHOSPHATASE 208 U/L (45-117); ALT/SGPT 68 U/L (12-78); ANION GAP 12 MEQ/L (8-16); AST/SGOT 54 U/L (7-37); BILIRUBIN,TOTAL 0.6 MG/DL (0.2-1.0); BLOOD UREA NITROGEN 12 MG/DL (7-18); CALCIUM LEVEL 8.7 MG/DL (8.5-10.1); CARBON DIOXIDE LEVEL 20 MEQ/L (21-32); CHLORIDE LEVEL 108 MEQ/L (98-107); CREATININE FOR GFR 0.67 MG/DL (0.55-1.30); GLOMERULAR FILTRATION RATE > 60.0 (>60); GLUCOSE, FASTING 75 MG/DL (70-100); LDH LACTATE DEHYDROGENASE 269 U/L (84-246); POTASSIUM SERUM 4.2 MEQ/L (3.5-5.1); SODIUM LEVEL 140 MEQ/L (136-145); TOTAL PROTEIN 6.9 GM/DL (6.4-8.2); URIC ACID 3.8 MG/DL (2.6-6.0)
[2018-08-13] MEDS: PROMETHAZINE 25 MG TAB PO (07:52)
[2018-08-13] MEDS: PRENATAL VITAMINS CHEWABLE TABLET PO (07:53)
[2018-08-13] MEDS: IBUPROFEN 800 MG TAB PO ×2 (08:04→19:48)
[2018-08-14] MEDS: PRENATAL VITAMINS CHEWABLE TABLET PO (08:49)
== END 2018-08-14 12:35 | disposition home or self-care (01) | DRG 560 ==
LOC: M LDO 10:00 → M LDI 10:29 → M OBS 23:30
PROVIDERS: Obstetrics & Gynecology
PROC: 10E0XZZ Delivery of Products of Conception, External Approach (ICD-10-PCS; principal; 2018-08-12)
PROC: 0HQ9XZZ Repair Perineum Skin, External Approach (ICD-10-PCS; 2018-08-12)
DX: O70.0 First degree perineal laceration during delivery (principal); O99.820 Streptococcus B carrier state complicating pregnancy; Z37.0 Single live birth; Z3A.39 39 weeks gestation of pregnancy

== ENCOUNTER → 2019-01-23 | Outpatient (CLI) | payer OTHER ==
[~2019-01-23] MED LIST changes: +COLA100C5 PO; +FLAG500T PO; +IBUP-1114 PO; +KEFL500C17 PO; +MAPA500T2 PO; +PERC5TAB12 PO; +PRENTAB40 PO; +PROAAER10 INH; +THROLOZ MT
[2019-01-23 14:28] LABS: HEMOGLOBIN 13.1 g/dl (12.0-15.5); MEAN CORPUSCULAR HGB CONC 32.8 g/dl (32.0-36.5); MEAN CORPUSCULAR VOLUME 88.7 fl (80.0-96.0); PLATELET COUNT, AUTOMATED 221 10^3/uL (150-450); RED BLOOD COUNT 4.51 10^6/uL (4.00-5.40); WHITE BLOOD COUNT 5.4 10^3/uL (4.0-10.0)
[2019-01-23 19:00] LABS: ALBUMIN 3.8 GM/DL (3.2-5.2); ALT/SGPT 23 U/L (12-78); BILIRUBIN,TOTAL 0.5 MG/DL (0.2-1.0); BLOOD UREA NITROGEN 9 MG/DL (7-18); CALCIUM LEVEL 8.4 MG/DL (8.5-10.1); CARBON DIOXIDE LEVEL 25 MEQ/L (21-32); CHLORIDE LEVEL 111 MEQ/L (98-107); CHOLESTEROL LEVEL 110 MG/DL (<200); CREATININE FOR GFR 0.76 MG/DL (0.55-1.30); GLOMERULAR FILTRATION RATE > 60.0 (>60); GLUCOSE, FASTING 95 MG/DL (70-100); HDL CHOLESTEROL 47 MG/DL (>40); IRON (FE) 41 UG/DL (50-170); LDL CHOLESTEROL 52 MG/DL (<100); NON-HDL-C 63 MG/DL; PERCENT SATURATION 12.2 % (13.2-45.0); SODIUM LEVEL 141 MEQ/L (136-145); TOTAL IRON BINDING CAPACITY 336 UG/DL (250-450); TOTAL PROTEIN 7.1 GM/DL (6.4-8.2); TRIGLYCERIDES LEVEL 57 MG/DL (<150)
[2019-01-23 19:38] LABS: TOTAL T3 80.7 NG/DL (60.0-181.0)
[2019-01-23 21:55] LABS: HEMOGLOBIN A1c 5.2 %
== END ==
LOC: M LAB 13:34
PROVIDERS: ATTEND Family Medicine
DX: D64.9 Anemia, unspecified (principal); R53.83 Other fatigue; E03.9 Hypothyroidism, unspecified

== ENCOUNTER 2019-02-16 16:52 | Emergency (ER) | payer OTHER ==
[~2019-02-16] VITALS: Ht 165.1 cm; Wt 47.5 kg
[2019-02-16 16:53] VITALS: BP 128/79
[2019-02-16] MEDS ORDERED: FERR325T18 (16:59)
[2019-02-16] MEDS ORDERED: SERT-155 (16:59)
[2019-02-16] MEDS ORDERED: METHOCARBAMOL 750 MG TAB PO ONE (17:30)
[2019-02-16] MEDS ORDERED: LIDOCAINE 5% (LIDODERM) PATCH TD ONE (17:30)
[2019-02-16] MEDS ORDERED: ROBA500T PO (18:09)
[2019-02-16] MEDS ORDERED: KETO10TAB PO (18:09)
[2019-02-16] MEDS ORDERED: diazePAM 5 MG TAB PO ONE (18:15)
[2019-02-16] MEDS ORDERED: KETOROLAC TROMETHAMINE 10 MG TAB PO ONE (18:15)
--- NOTE | 2019-02-16 18:28 | REP ---
HISTORY: Trauma. COMPARISON: None. FINDINGS: Five views of the ribs show no acute fracture r destructive osseous lesion. The accompanying frontal view of the chest shows no cardiomegaly, infiltrates, effusions or pneumothoraces. IMPRESSION: Negative ribs series. Electronically Signed by Silvio Lopez DO 02/16/2019 07:06 P
[2019-02-16] MEDS ORDERED: **NOTE PATIENT COMMENT** MISC XX SCH (21:00)
== END 2019-02-16 18:29 | disposition home or self-care (01) ==
LOC: M ED 16:52
DX: S29.012A Strain of muscle and tendon of back wall of thorax, initial encounter (principal); S20.219A Contusion of unspecified front wall of thorax, initial encounter; W22.8XXA Striking against or struck by other objects, initial encounter; Y92.018 Other place in single-family (private) house as the place of occurrence of the external cause

== ENCOUNTER 2019-03-20 11:00 | Emergency (ER) | payer OTHER ==
[~2019-03-20] VITALS: Ht 165.1 cm; Wt 45.5 kg
[~2019-03-20 11:00] MED LIST changes: +FERR325T18; +KETO10TAB PO; +ROBA500T PO; +SERT-155
[2019-03-20] MEDS ORDERED: CLON0.5T8 (11:08)
[2019-03-20] MEDS ORDERED: GOOD200C PO (11:08)
--- NOTE | 2019-03-20 12:54 | REP ---
CHEST, SINGLE VIEW: There is no evidence of acute infiltrate. No pleural effusion is seen. The heart is normal in size. The mediastinal silhouette is unremarkable. The visualized osseous structures are intact. IMPRESSION: No acute pulmonary disease. Electronically Signed by Pavan Tena MD 03/20/2019 02:07 P
[2019-03-20] MEDS ORDERED: KETO10TAB PO (13:09)
[2019-03-20 13:15] VITALS: BP 135/89
[2019-03-20] MEDS ORDERED: KETOROLAC TROMETHAMINE 10 MG TAB PO ONE (13:15)
== END 2019-03-20 13:32 | disposition home or self-care (01) ==
LOC: M ED 11:00
DX: S20.212A Contusion of left front wall of thorax, initial encounter (principal); W18.39XA Other fall on same level, initial encounter; Y92.89 Other specified places as the place of occurrence of the external cause; F33.9 Major depressive disorder, recurrent, unspecified; F41.9 Anxiety disorder, unspecified; Z79.899 Other long term (current) drug therapy; F17.210 Nicotine dependence, cigarettes, uncomplicated

== ENCOUNTER 2019-06-27 10:02 | Emergency (ER) | payer OTHER ==
[~2019-06-27] VITALS: Ht 165.1 cm; Wt 46.2 kg
[~2019-06-27 10:02] MED LIST changes: +CLON0.5T8; +GOOD200C PO; -SERT-155; +SERT50TA29
[2019-06-27 10:05] VITALS: BP 117/66
[2019-06-27] MEDS ORDERED: METH-1022 (10:11)
[2019-06-27] MEDS ORDERED: FERR325T18 (10:11)
--- NOTE | 2019-06-27 11:48 | REP ---
Eight views thoracolumbar spine: 06/27/2019. Indication: Thoracolumbar spine trauma. Comparison: None. Findings: There is no acute fracture, subluxation or dislocation. No erosive osseous lesions are detected. Bony alignment is anatomic. Impression: No acute fracture. Electronically Signed by Syd Gao DO 06/27/2019 11:40 A
--- NOTE | 2019-06-27 11:53 | REP ---
Five views right ribs/chest: 06/27/2019. Indication: Chest trauma. Comparison: 03/20/2019. Findings: No acute rib fractures detected. There is no evidence of lung contusion. The lungs are clear. There is no pleural effusion or pneumothorax. Impression: No evidence of acute osseous injury of the right ribs or thorax. Electronically Signed by Syd Gao DO 06/27/2019 11:45 A
== END 2019-06-27 13:45 | disposition home or self-care (01) ==
LOC: M ED 10:02
DX: S23.3XXA Sprain of ligaments of thoracic spine, initial encounter (principal); W10.8XXA Fall (on) (from) other stairs and steps, initial encounter; Y92.018 Other place in single-family (private) house as the place of occurrence of the external cause; Y93.9 Activity, unspecified; Y99.9 Unspecified external cause status; Z91.81 History of falling

== ENCOUNTER 2019-07-27 13:57 | Emergency (ER) | payer OTHER ==
[~2019-07-27] VITALS: Ht 165.1 cm; Wt 45.5 kg
[~2019-07-27 13:57] MED LIST changes: +METH-1022
[2019-07-27 13:58] VITALS: BP 114/66
== END 2019-07-27 14:55 | disposition left against medical advice (07) ==
LOC: M ED 13:57
DX: Z53.21 Procedure and treatment not carried out due to patient leaving prior to being seen by health care provider (principal)

== ENCOUNTER 2019-08-03 15:18 | Emergency (ER) | payer OTHER ==
[~2019-08-03] VITALS: Ht 165.1 cm; Wt 46.8 kg
[~2019-08-03 15:18] MED LIST changes: +CLON0.5T2; -CLON0.5T8
[2019-08-03 15:19] VITALS: BP 121/71
[2019-08-03] MEDS ORDERED: ALPR1TAB3 (15:26)
[2019-08-03] MEDS ORDERED: AZITHROMYCIN 250 MG TAB PO ONE (16:00)
[2019-08-03] MEDS ORDERED: cefTRIAXone SOD 250 MG VIAL (J0696) IM ONE (16:00)
[2019-08-03] MEDS ORDERED: LIDOCAINE 1% SDV 5 ML VIAL DILUENT ONE (16:00)
[2019-08-03 17:29] LABS: CHLAMYDIA DNA AMPLIFICATION NEGATIVE (NEGATIVE); GC DNA AMPLIFICATION POSITIVE (NEGATIVE)
== END 2019-08-03 16:29 | disposition home or self-care (01) ==
LOC: M ED 15:18
DX: Z20.2 Contact with and (suspected) exposure to infections with a predominantly sexual mode of transmission (principal); A54.9 Gonococcal infection, unspecified; F33.9 Major depressive disorder, recurrent, unspecified; F41.9 Anxiety disorder, unspecified; F17.210 Nicotine dependence, cigarettes, uncomplicated
CPT/HCPCS: 84702; 87210; 87661; 96372; 99282; J0696

== ENCOUNTER 2021-03-31 15:23 | Emergency (ER) | payer OTHER ==
[~2021-03-31] VITALS: Ht 165.1 cm; Wt 47.6 kg
[2021-03-31 15:23] VITALS: BP 114/59
[~2021-03-31 15:23] MED LIST changes: +ALPR1TAB3
[2021-03-31 16:11] LABS: BASO % 0.4 % (0.0-1.0); EOS # 0.2 10^3/uL (0.0-0.5); EOS % 2.3 % (0.0-3.0); HEMOGLOBIN 11.9 g/dl (12.0-15.5); LYMPH # 0.8 10^3/uL (1.5-5.0); LYMPH % 8.2 % (24.0-44.0); MEAN CORPUSCULAR HEMOGLOBIN 30.6 pg (27.0-33.0); MEAN CORPUSCULAR HGB CONC 33.1 g/dl (32.0-36.5); MEAN CORPUSCULAR VOLUME 92.5 fl (80.0-96.0); MONO # 0.7 10^3/uL (0.0-0.8); MONO % 7.8 % (2.0-8.0); NEUTROPHILS # 7.6 10^3/uL (1.5-8.5); NEUTROPHILS % 80.7 % (36.0-66.0); PLATELET COUNT, AUTOMATED 248 10^3/uL (150-450); RED BLOOD COUNT 3.89 10^6/uL (4.00-5.40); WHITE BLOOD COUNT 9.4 10^3/uL (4.0-10.0)
[2021-03-31 16:38] LABS: HCG, SERUM QUALITATIVE NEGATIVE (NEGATIVE)
[2021-03-31 16:40] LABS: ALBUMIN 3.2 GM/DL (3.2-5.2); ALT/SGPT 126 U/L (12-78); BILIRUBIN,DIRECT 0.2 MG/DL (0.0-0.2); BILIRUBIN,TOTAL 0.5 MG/DL (0.2-1.0); BLOOD UREA NITROGEN 12 MG/DL (7-18); CARBON DIOXIDE LEVEL 31 MEQ/L (21-32); CHLORIDE LEVEL 108 MEQ/L (98-107); CREATININE FOR GFR 0.75 MG/DL (0.55-1.30); GLOMERULAR FILTRATION RATE > 60.0 (>60); GLUCOSE, FASTING 97 MG/DL (70-100); LIPASE 148 U/L (73-393); POTASSIUM SERUM 4.3 MEQ/L (3.5-5.1); SODIUM LEVEL 143 MEQ/L (136-145); TOTAL PROTEIN 6.9 GM/DL (6.4-8.2)
== END 2021-03-31 18:25 | disposition left against medical advice (07) ==
LOC: M ED 15:23
DX: R10.9 Unspecified abdominal pain (principal); F17.200 Nicotine dependence, unspecified, uncomplicated; Z53.20 Procedure and treatment not carried out because of patient's decision for unspecified reasons

== ENCOUNTER 2021-04-03 19:56 | Emergency (ER) | payer OTHER ==
[~2021-04-03] VITALS: Ht 165.1 cm; Wt 48.6 kg
[2021-04-03 19:56] VITALS: BP 126/79
[2021-04-03] MEDS ORDERED: ACET-910 PO (20:04)
[2021-04-03] MEDS ORDERED: IBUP-1363 PO (20:04)
== END 2021-04-03 22:10 | disposition left against medical advice (07) ==
LOC: M ED 19:56
DX: Z53.21 Procedure and treatment not carried out due to patient leaving prior to being seen by health care provider (principal)

== ENCOUNTER 2022-09-06 13:26 | Inpatient (IN) | payer MEDICAID, OTHER, SELFPAY ==
[~2022-09-06] VITALS: Ht 165.1 cm; Wt 49.8 kg
[~2022-09-06 13:26] MED LIST changes: +ACET-910 PO; +IBUP-1363 PO
[2022-09-06 14:37] LABS: HEMATOCRIT 39.4 % (36.0-47.0); HEMOGLOBIN 13.3 g/dl (12.0-15.5); MEAN CORPUSCULAR HEMOGLOBIN 30.4 pg (27.0-33.0); MEAN CORPUSCULAR HGB CONC 33.8 g/dl (32.0-36.5); MEAN CORPUSCULAR VOLUME 90.2 fl (80.0-96.0); PLATELET COUNT, AUTOMATED 178 10^3/uL (150-450); RED BLOOD COUNT 4.37 10^6/uL (4.00-5.40); WHITE BLOOD COUNT 6.2 10^3/uL (4.0-10.0)
[2022-09-06 15:00] LABS: ETHYL ALCOHOL (ETHANOL) 0.003 % (0.000-0.010)
[2022-09-06 15:02] LABS: ACETAMINOPHEN LEVEL < 2.0 UG/ML (10.0-20.0); ALBUMIN 3.9 G/DL (3.2-5.2); ALKALINE PHOSPHATASE 64 U/L (46-116); ALT/SGPT 18 U/L (7.0-40); AST/SGOT 19 U/L (<34); BILIRUBIN,DIRECT 0.1 MG/DL (<0.4); BILIRUBIN,TOTAL 0.3 MG/DL (0.3-1.2); BLOOD UREA NITROGEN 8 MG/DL (9-23); CALCIUM LEVEL 9.5 MG/DL (8.5-10.1); CARBON DIOXIDE LEVEL 22 MMOL/L (20-31); CHLORIDE LEVEL 107 MMOL/L (98-107); CREATININE FOR GFR 0.54 MG/DL (0.55-1.30); GLOMERULAR FILTRATION RATE > 60.0 (>60); GLUCOSE, FASTING 89 MG/DL (60-100); POTASSIUM SERUM 4.6 MMOL/L (3.5-5.1); SALICYLATE LEVEL < 3.0 MG/DL (<30); SODIUM LEVEL 139 MMOL/L (136-145)
[2022-09-06 15:04] LABS: THYROID STIMULATING HORMONE 1.062 uIU/ML (0.55-4.78)
[2022-09-06 15:05] LABS: HCG, SERUM QUALITATIVE POSITIVE (NEGATIVE)
[2022-09-06 15:11] LABS: AMPHETAMINES LEVEL URINE NEGATIVE (NEGATIVE); BARBITURATES URINE NEGATIVE (NEGATIVE); BENZODIAZEPINES URINE NEGATIVE (NEGATIVE); CANNABINOIDS URINE NEGATIVE (NEGATIVE); COCAINE METABOLITE URINE NEGATIVE (NEGATIVE); METHADONE URINE NEGATIVE (NEGATIVE); OPIATES URINE NEGATIVE (NEGATIVE); PHENCYCLIDINE URINE NEGATIVE (NEGATIVE)
[2022-09-06] MEDS ORDERED: HOME MED LIST COMPLETE! XX SCH (16:50)
[2022-09-06] MEDS ORDERED: OLANZapine ORAL DISINTEGRATING TAB 5MG PO PRN (18:25)
[2022-09-06] MEDS ORDERED: diphenhydrAMINE 25MG CAP PO ONE (21:15)
[2022-09-07] MEDS: PRENATAL VITAMINS CHEWABLE TABLET PO SCH (11:49)
[2022-09-07 16:45] VITALS: BP 136/85
[2022-09-07] MEDS: diphenhydrAMINE 50MG CAP PO PRN (20:00)
[2022-09-07] MEDS: ACETAMINOPHEN TAB 650MG DOSE (2X325MG) PO PRN (20:02)
[2022-09-08] MEDS: ACETAMINOPHEN TAB 650MG DOSE (2X325MG) PO PRN ×3 (06:07→21:38)
[2022-09-08 06:35] VITALS: BP 119/77
[2022-09-08] MEDS: PRENATAL VITAMINS CHEWABLE TABLET PO SCH (11:18)
[2022-09-08 16:21] VITALS: BP 140/86
[2022-09-08] MEDS ORDERED: EPINEPHrine INJ 1 MG/ML 1ML AMP IM STA (19:01)
[2022-09-08] MEDS ORDERED: methylPREDNISolone 125MG 2ML VIAL IV ONE (19:05)
[2022-09-08] MEDS ORDERED: ISOVUE-370 76% 100ML VIAL As Ordered ONE (19:51)
[2022-09-08] MEDS: diphenhydrAMINE 50MG CAP PO PRN (21:36)
[2022-09-09] MEDS: ACETAMINOPHEN TAB 650MG DOSE (2X325MG) PO PRN (06:18)
[2022-09-09 06:27] VITALS: BP 120/77
[2022-09-09 08:43] LABS: BASO # 0.1 10^3/uL (0.0-0.2); BASO % 0.6 % (0.0-1.0); EOS # 0.1 10^3/uL (0.0-0.5); HEMOGLOBIN 13.3 g/dl (12.0-15.5); LYMPH # 1.9 10^3/uL (1.5-5.0); LYMPH % 18.7 % (24.0-44.0); MEAN CORPUSCULAR HEMOGLOBIN 30.5 pg (27.0-33.0); MEAN CORPUSCULAR HGB CONC 33.3 g/dl (32.0-36.5); MEAN CORPUSCULAR VOLUME 91.7 fl (80.0-96.0); MONO # 0.7 10^3/uL (0.0-0.8); MONO % 6.5 % (2.0-8.0); NEUTROPHILS # 7.5 10^3/uL (1.5-8.5); NEUTROPHILS % 72.8 % (36.0-66.0); PLATELET COUNT, AUTOMATED 199 10^3/uL (150-450); RED BLOOD COUNT 4.36 10^6/uL (4.00-5.40); WHITE BLOOD COUNT 10.3 10^3/uL (4.0-10.0)
[2022-09-09] MEDS ORDERED: AUGMENTIN 875 MG TAB PO SCH (09:00)
[2022-09-09] MEDS: PRENATAL VITAMINS CHEWABLE TABLET PO SCH (09:02)
[2022-09-09 09:10] LABS: BLOOD UREA NITROGEN 14 MG/DL (9-23); CARBON DIOXIDE LEVEL 22 MMOL/L (20-31); CHLORIDE LEVEL 105 MMOL/L (98-107); CREATININE FOR GFR 0.55 MG/DL (0.55-1.30); GLOMERULAR FILTRATION RATE > 60.0 (>60); GLUCOSE, FASTING 84 MG/DL (60-100); POTASSIUM SERUM 4.3 MMOL/L (3.5-5.1); SODIUM LEVEL 140 MMOL/L (136-145)
[2022-09-09] MEDS ORDERED: PRENCHW PO (10:05)
[2022-09-09] MEDS ORDERED: AMOX875T2 PO ×2 (10:13→10:14)
== END 2022-09-09 11:26 | disposition home or self-care (01) | DRG 566 ==
LOC: M ED 13:26 → M ED INP 18:24 → M PSY 09-07 10:17
PROVIDERS: ADMIT Psychiatry & Neurology Psychiatry; ATTEND Psychiatry & Neurology Psychiatry
DX: O99.341 Other mental disorders complicating pregnancy, first trimester (principal); U07.1 COVID-19; O98.511 Other viral diseases complicating pregnancy, first trimester; F32.89 Other specified depressive episodes; R22.9 Localized swelling, mass and lump, unspecified

== ENCOUNTER 2023-02-16 12:47 | Emergency (ER) | payer MEDICAID ==
[~2023-02-16] VITALS: Ht 165.1 cm; Wt 59.6 kg
[~2023-02-16 12:47] MED LIST changes: +AMOX875T2 PO; +PRENCHW PO
[2023-02-16 12:48] VITALS: BP 138/97; TEMP 99.6; O2SAT 98
== END 2023-02-16 17:12 | disposition left against medical advice (07) ==
LOC: M ED 12:47
DX: Z53.21 Procedure and treatment not carried out due to patient leaving prior to being seen by health care provider (principal)

== ENCOUNTER 2023-02-22 16:35 | Emergency (ER) | payer MEDICAID ==
[~2023-02-22] VITALS: Ht 165.1 cm; Wt 59.5 kg
[2023-02-22 16:35] VITALS: BP 140/98; TEMP 98.4; O2SAT 97
== END 2023-02-22 21:02 | disposition left against medical advice (07) ==
LOC: M ED 16:35
DX: Z53.21 Procedure and treatment not carried out due to patient leaving prior to being seen by health care provider (principal)

== ENCOUNTER 2024-02-17 21:29 | Emergency (ER) | payer MEDICAID, OTHER ==
[~2024-02-17] VITALS: Ht 165.1 cm; Wt 51.9 kg
[2024-02-17 21:29] VITALS: BP 133/94; TEMP 98.2; O2SAT 100
[2024-02-18 01:57] LABS: HEMATOCRIT 40.9 % (36.0-47.0); HEMOGLOBIN 13.9 g/dl (12.0-15.5); MEAN CORPUSCULAR HEMOGLOBIN 30.6 pg (27.0-33.0); MEAN CORPUSCULAR VOLUME 90.1 fl (80.0-96.0); PLATELET COUNT, AUTOMATED 180 10^3/uL (150-450); RED BLOOD COUNT 4.54 10^6/uL (4.00-5.40); WHITE BLOOD COUNT 4.5 10^3/uL (4.0-10.0)
[2024-02-18 02:22] LABS: ETHYL ALCOHOL (ETHANOL) 0.004 % (0.000-0.010); HCG, SERUM QUALITATIVE NEGATIVE (NEGATIVE)
[2024-02-18 02:23] LABS: SALICYLATE LEVEL < 3.0 MG/DL (<30)
[2024-02-18 02:24] LABS: ALBUMIN 3.9 G/DL (3.2-5.2); ALKALINE PHOSPHATASE 82 U/L (46-116); ALT/SGPT 26 U/L (7.0-40); AST/SGOT 33 U/L (<34); BILIRUBIN,DIRECT 0.1 MG/DL (<0.4); BILIRUBIN,TOTAL 0.5 MG/DL (0.3-1.2); BLOOD UREA NITROGEN 11 MG/DL (9-23); CALCIUM LEVEL 9.2 MG/DL (8.5-10.1); CARBON DIOXIDE LEVEL 28 MMOL/L (20-31); CHLORIDE LEVEL 105 MMOL/L (98-107); CREATININE FOR GFR 0.68 MG/DL (0.55-1.30); GLOMERULAR FILTRATION RATE > 60.0 (>60); GLUCOSE, FASTING 87 MG/DL (60-100); POTASSIUM SERUM 4.6 MMOL/L (3.5-5.1); SODIUM LEVEL 138 MMOL/L (136-145)
== END 2024-02-18 03:11 | disposition left against medical advice (07) ==
LOC: M ED 21:29
DX: R44.2 Other hallucinations (principal); F17.200 Nicotine dependence, unspecified, uncomplicated; Z53.9 Procedure and treatment not carried out, unspecified reason

== ENCOUNTER 2024-09-25 14:50 | Emergency (ER) | payer OTHER ==
[~2024-09-25] VITALS: Ht 165.1 cm; Wt 53.2 kg
[~2024-09-25 14:50] MED LIST changes: -GOOD200C PO; +IBUP200C35 PO
[2024-09-25] MEDS ORDERED: BUPR1FIL (15:02)
[2024-09-25] MEDS ORDERED: AMOX875T2 PO (17:49)
[2024-09-25] MEDS ORDERED: KETO10TAB PO (17:49)
[2024-09-25] MEDS: KETOROLAC TROMETHAMINE 10 MG TAB PO ONE (18:06)
[2024-09-25 18:09] VITALS: BP 136/1; TEMP 97; O2SAT 100
== END 2024-09-25 18:11 | disposition home or self-care (01) ==
LOC: M ED 14:50
DX: K04.7 Periapical abscess without sinus (principal); K08.89 Other specified disorders of teeth and supporting structures; F17.200 Nicotine dependence, unspecified, uncomplicated; F19.10 Other psychoactive substance abuse, uncomplicated; F41.9 Anxiety disorder, unspecified; Z79.2 Long term (current) use of antibiotics; Z79.899 Other long term (current) drug therapy